=== PATIENT | male | born 1935 | race Caucasian/White ===

== ENCOUNTER 2019-08-30 21:21 | Inpatient (IN) | payer MEDICARE, BC ==
[~2019-08-30] VITALS: Ht 172.7 cm; Wt 75.3 kg
--- NOTE | 2019-08-30 21:10 | NUR ---
PT ARRIVED VIA AMBULANCE. O2 ON 2L VIA NC. PT DENIES NEEDS AT THIS TIME. CL IN REACH. A/O X3. CONFUSED WITH SITUATION AT TIMES. RESP EVEN AND UNLABORED. WILL CONTINUE TO MONITOR.
[2019-08-30 21:30] VITALS: BP 102/61
[2019-08-30] MEDS ORDERED: LINZESS290 MCG PO (21:35)
[2019-08-30] MEDS ORDERED: BAYER CHEWABLE81 MG PO (21:36)
[2019-08-30] MEDS ORDERED: COREG 3.1253.125 MG PO (21:36)
[2019-08-30] MEDS ORDERED: PROTONIX40 MG PO (21:36)
[2019-08-30] MEDS ORDERED: CRESTOR10 MG PO (21:37)
[2019-08-30] MEDS ORDERED: PROZAC20 MG PO (21:37)
[2019-08-30] MEDS ORDERED: COUMADIN5 MG PO (21:38)
[2019-08-30] MEDS ORDERED: COUMADIN2.5 MG PO (21:38)
[2019-08-30 22:16] VITALS: BP 102/61
[2019-08-31 04:51] LABS: BASOPHILS 0.3 % (0-2); EOSINOPHILS 1.3 % (0-7); HEMATOCRIT 26.5 % (42.0-54.0); IMMATURE GRANULOCYTES 0.5 % (0-5); MCH 27.9 pg (26.0-34.0); MCHC 30.2 g/dL (31.0-37.0); MCV 92.3 fL (80.0-100.0); MEAN PLATELET VOLUME 9.7 fL (7.4-10.4); MONOCYTES 8.2 % (2-11); NEUTROPHILS 70.7 % (40-80); PLATELET COUNT 385 10x3/uL (130-400); RBC 2.87 10x6/uL (4.20-6.10); RDW 16.2 % (11.5-14.5); WBC 6.3 10x3/uL (4.8-10.8)
[2019-08-31 04:58] LABS: ANION GAP 11.2 mmol/L (8-16); CALCIUM 8.7 mg/dL (8.5-10.1); CARBON DIOXIDE 27.3 mmol/L (21.0-32.0); CREATININE - SERUM 1.2 mg/dL (0.6-1.3); POTASSIUM - SERUM 4.5 mmol/L (3.5-5.1)
[2019-08-31 04:59] LABS: INR 2.45 (0.85-1.17); PROTIME 26.2 SECONDS (11.6-15.0)
[2019-08-31 08:00] VITALS: BP 119/58
[2019-08-31 09:06] VITALS: Ht 172.7 cm; Wt 75.3 kg
--- NOTE | 2019-08-31 19:15 | NUR ---
PT LYING IN BED WATCHING TV. CL IN REACH. DENIES NEEDS AT THIS TIME. BED IN LOW SIDE RAILS X3. CONFUSED WITH SITUATION. RESP EVEN AND UNLABORED. LUNGS DIMINISHED. O2 ON 2L VIA NC. BOWEL ACTIVE X4. WILL CONTINUE TO MONITOR.
[2019-08-31 19:49] VITALS: BP 124/94
--- NOTE | 2019-09-01 00:30 | NUR ---
I have reviewed this patient and I concur with the Shift Assessment completed by the Licensed Practical Nurse today this shift.
--- NOTE | 2019-09-01 05:33 | NUR ---
PT LYING IN BED WATCHING TV. CHANGED DUE TO INCONTINENCE OF URINE. WCTM
--- NOTE | 2019-09-01 07:27 | NUR ---
PT ASLEEP, AROUSES EASILY TO VOICE, NO NEEDS NOTED. FALL PRECAUTIONS IN PLACE, FLUIDS/CALL LIGHT WITHIN REACH
[2019-09-01 09:12] VITALS: BP 113/53
--- NOTE | 2019-09-01 19:30 | NUR ---
PT LYING IN BED WATCHING TV. CL IN REACH. DENIES NEEDS AT THIS TIME. BED IN LOW SIDE RAILS X2. BED ALARM ON. O2 ON 2L VIA NC. RESP EVEN AND UNLABORED. LUNGS DIMINISHED. BOWEL ACTIVE X4. WILL CONTINUE TO MONITOR.
--- NOTE | 2019-09-01 22:37 | NUR ---
I have reviewed this patient and I concur with the Shift Assessment completed by the Licensed Practical Nurse today this shift.
--- NOTE | 2019-09-02 03:34 | NUR ---
PT LYING IN BED ON LEFT SIDE EYES CLOSED RESTING. RR EVEN AND UNLABORED. CALL LIGHT WITHIN REACH. BED ALARM ON. CPOC
[2019-09-02 07:06] LABS: ANION GAP 8.7 mmol/L (8-16); CALCIUM 8.4 mg/dL (8.5-10.1); CARBON DIOXIDE 27.5 mmol/L (21.0-32.0); CREATININE - SERUM 1.2 mg/dL (0.6-1.3); POTASSIUM - SERUM 4.2 mmol/L (3.5-5.1)
[2019-09-02 07:12] LABS: BASOPHILS 0.2 % (0-2); EOSINOPHILS 1.5 % (0-7); HEMATOCRIT 26.1 % (42.0-54.0); IMMATURE GRANULOCYTES 0.4 % (0-5); LYMPHOCYTES 16.4 % (15-50); MCH 28.1 pg (26.0-34.0); MCHC 30.7 g/dL (31.0-37.0); MCV 91.6 fL (80.0-100.0); MEAN PLATELET VOLUME 9.6 fL (7.4-10.4); MONOCYTES 6.7 % (2-11); NEUTROPHILS 74.8 % (40-80); PLATELET COUNT 332 10x3/uL (130-400); RBC 2.85 10x6/uL (4.20-6.10); RDW 16.4 % (11.5-14.5); WBC 5.4 10x3/uL (4.8-10.8)
--- NOTE | 2019-09-02 07:25 | NUR ---
RESTING WO DISTRESS. BED ALARM ON. CL IN REACH.
[2019-09-02 08:00] VITALS: BP 94/48
--- NOTE | 2019-09-02 10:13 | NUR ---
PARTICIPATING IN THERAPY AT THIS TIME. NO DISTRESS NOTED.
--- NOTE | 2019-09-02 11:36 | NUR ---
SHOWER PER OT.
[2019-09-02 14:22] LABS: INR 3.1 (0.85-1.17); PROTIME 31.4 SECONDS (11.6-15.0)
--- NOTE | 2019-09-02 14:57 | NUR ---
PT HAS BRUISING ON BILATERAL UPPER AND LOWER EXTREMITIES. SACRUM HAS DISCOLORATION DUE TO SCARRING FROM PREVIOUS PRESSURE INJURIES. LEFT #1, 3 AND 4 TOES ARE BLACK, HEEL IS COVERED IN BLACK ESCHAR. RIGHT #1 AND 5 TOES ARE BLACK ON TIPS. CURRENT TREATMENT FOR TOES AND HEELS IS PAINTING WITH BETADINE AND COVERING WITH KERLIX. RECOMMEND MEPILEX SACRAL DRESSING FOR PROTECTION D/T HISTORY OF PRESSURE INJURIES. ALSO TURN/REPOSITION Q 2 HOURS WHILE IN BED. WOUND CARE WILL CONTINUE MONITORING.
--- NOTE | 2019-09-02 16:27 | NUR ---
NO CHANGE IN ASSESSMENT. RESTING WO C/O PAIN. CL IN REACH.
--- NOTE | 2019-09-02 20:00 | NUR ---
RESIDENT IS RESTING IN BED WITH EYE EYES OPEN. ALERT TO SELF. CONFUSED TO TIME, PLACE AND SITUATION. UNABLE TO REORIENT AT THIS TIME. O2 IS ON @ 2LPM PER NC. NO SOB NOTED. SR'S ARE UP X 2 IN BED. CALL LIGHT AND BEDSIDE TABLE ARE WITHIN EASY REACH.
[2019-09-02 21:26] VITALS: BP 97/41
--- NOTE | 2019-09-02 22:58 | NUR ---
PT IS RESTING QUIETLY IN BED WITH EYES CLOSED. RESPS ARE EVEN AND UNLABORED. NO ACUTE DISTRESS NOTED.
--- NOTE | 2019-09-03 01:47 | NUR ---
I have reviewed this patient and I concur with the Shift Assessment completed by the Licensed Practical Nurse today this shift.
--- NOTE | 2019-09-03 04:37 | NUR ---
RESTING IN BED WITH EYES CLOSED.
[2019-09-03 07:13] LABS: INR 2.63 (0.85-1.17); PROTIME 27.6 SECONDS (11.6-15.0)
--- NOTE | 2019-09-03 07:22 | NUR ---
RESTING. RESP EVEN AND UNLABORED. BED ALARM ON. CL IN REACH.
[2019-09-03 08:00] VITALS: BP 100/52
--- NOTE | 2019-09-03 09:16 | RHP ---
PATIENT: GREGORIO PEÑA MEDICAL RECORD: [id number] ACCOUNT: [id number] LOCATION:[facility]1110 : 36 ADMISSION DATE: 08/30/19 REHABILITATION HISTORY AND PHYSICAL EXAMINATION POST ADMISSION PHYSICIAN EXAMINATION ADMITTING DIAGNOSIS: Critical illness myopathy. 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 He has been on combination of anticoagulation and antiplatelet therapies including aspirin, clopidogrel, Lovenox and warfarin. He was started back on his Plavix and warfarin, was stopped again on 08/22/2019 due to a drop in his hemoglobin. He was transfused on 08/22/2019. Repeat CTA of his abdomen did not show any evidence of an active bleed. He is now back on warfarin. He has had a totally occluded right common iliac artery. He has been seen by vascular surgery in the past. It was noted that he may need amputation. The patient did not want to opt for this at this time. Lower extremity Doppler showed a DVT in the right lower extremity. He has had a stable eschar in the right heel and tops of his toes. The patient has had wound care. We will continue on Betadine to the right heel and wrapped with Kerlix. His INR is being followed closely, he is incontinent, which makes this a little bit rougher. He does remain on a skin guard, on a low air mattress this time. He is tolerating a diabetic diet with Ensure. He remains on 4 liters of O2 per nasal cannula, been participating in therapy. He requires min assist with his transfers and ambulated 10 feet with min assist. Prior to this hospitalization, he was living at home alone, he was independent with ADLs and used a walker for ambulation. His daughter does live next door. She checks on him frequently. He is motivated to return home. COMORBIDITIES: Include diabetes, prostate cancer, COPD, history of coronary artery disease and coronary artery bypass grafting. He has got a history of hyperlipidemia, prostate cancer and diabetes. PAST MEDICAL HISTORY: Significant for diabetes, prostate cancer, peripheral vascular disease, TIA in the past, hypertension and hyperlipidemia. PAST SURGICAL HISTORY: Includes coronary artery disease and coronary artery bypass grafting. ALLERGIES: ATORVASTATIN, METOPROLOL, TETANUS, AND DIPHTHERIA. IT ALSO LISTS METOPROLOL ON HIS LIST. CURRENT MEDICATIONS: He is on warfarin 2.5 mg Monday, Monday and Monday, 5 mg Monday, Monday, , and Monday; he on atorvastatin 10 mg daily; Prozac 20 mg daily; aspirin chewable 81 mg daily; carvedilol 3.125 mg b.i.d. with meals; Protonix 40 mg daily; Linzess 290 mcg daily. HABITS: No current alcohol or tobacco use. FAMILY HISTORY: Noncontributory. SOCIAL HISTORY: The patient hopes to return back home and get back to his prior level of functioning. HISTORY AND PHYSICAL [id number] GREGORIO PEÑA REVIEW OF SYSTEMS: GENERAL: Does complain of weakness and fatigue. HEENT: Denies cold, cough, or congestion. CARDIOVASCULAR: Denies any chest pain. PHYSICAL EXAMINATION: VITAL SIGNS: Stable, afebrile. GENERAL: Elderly gentleman in no acute distress upon exam. HEENT: Normocephalic and atraumatic. Mucosa moist. NECK: Supple. No lymphadenopathy. LUNGS: Clear in upper garn[place] with decreased breath sounds in the bases. CARDIOVASCULAR: Regular rate and rhythm. He does have a holosystolic murmur. ABDOMEN: Soft, benign, and nondistended. Positive bowel sounds times 4. EXTREMITIES: No clubbing, cyanosis or edema. Does have noted vascular changes or skin changes consistent with peripheral arterial disease and a black eschar noted, but no signs of infection at this time or malodorous drainage. NEUROLOGIC: He does have proximal muscle weakness. LABORATORY DATA: His white count is 6.3, H&H 8 and 26 and platelet count is noted to be 385. His INR is 2.45. His sodium is 141, potassium 4.5, BUN and creatinine of 31 and 1.2, and blood sugar is noted to be 160. ASSESSMENT: This is an 84-year-old gentleman admitted to the rehab with a working diagnosis of critical illness myopathy. The patient has potential to make improvement. We instituted the following multidisciplinary therapies including, but not limited to physical, occupational, respiratory, speech, nutritional services, prosthetics and orthotics. Given his complex medical condition and risks for more complications, rehabilitation services cannot be provided at a low level of care such as skilled nurse facility. PLAN: 1. Admit to [facility] for intensive inpatient therapy to include the following disciplines; A. Physical therapy to improve gait, all transfer skills and bed mobility to a modified independent level. B. Occupational therapy to improve activities of living. C. Case management to assist with discharge planning and placement options. D. Nutrition to assist with nutritional needs. E. Rehabilitation nursing to assist in monitoring the patient's underlying medical conditions and to assist with any type of bowel or bladder management. 2. The patient's current medication and medical care will be continued. 3. The patient will be placed on standard fall precautions. 4. The patient's estimated length of stay is approximately 7-10 days. 5. We will discuss this patient during care team staff meeting this week. TRANSINT:[id number] Voice Confirmation ID: [id number] DOCUMENT ID: [id number] GRECIA notes whether there has been none or any medical/functional change since admission: - No change since preadmission screen. GRECIA attests patient continues to be appropriate for IRF: - Continues to be appropriate. HISTORY AND PHYSICAL [id number] GREGORIO PEÑA,MIMI SIDDIQUI MD at 0916 CC: [id number] DICTATION DATE: 08/31/19 0857 FEED HOUSE SUPERVISOR: 08/31/[address] [facility] [address] [id number]
--- NOTE | 2019-09-03 13:11 | NUR ---
Nutrition Follow-up: Diet: Diabetic Soft PO intake: ~90% average x last 6 meals; patient was asleep at time of RD visit. Last BM: 09/02/19. WT: 166# (08/31/19) Meds noted: coumadin, linzess. Labs noted: Glu 170(H). Wound care following for h/o PU and black toes. Recommend continue current diet. Encourage PO intake. RD following.
--- NOTE | 2019-09-03 13:49 | NUR ---
NO CHANGE IN ASSESSMENT. PARTICIPATING IN THERAPY.
--- NOTE | 2019-09-03 16:29 | NUR ---
RESTING WITH EYES CLOSED. RESP EVEN AND UNLABORED. CL IN REACH.
--- NOTE | 2019-09-03 19:30 | NUR ---
PT SITTING UP IN BED WATCHING TV. HE IS ORIENTED TO PERSON. REIORIENTED TO TIME, PLACE AND SITUATION. HE IS VERY HARD OF HEARING. HE IS ON 2L NC. VSS. BED IS LOW AND CALL LIGHT WITHIN REACH.
[2019-09-03 21:18] VITALS: BP 94/38
--- NOTE | 2019-09-04 05:47 | NUR ---
PT INCONTINENT, DIAPER AND PADS ON BED CHANGED. ELROY AREA CLEANED.
[2019-09-04 06:49] LABS: BASOPHILS 0.2 % (0-2); EOSINOPHILS 0.8 % (0-7); HEMATOCRIT 27.8 % (42.0-54.0); HEMOGLOBIN 8.2 g/dL (13.5-17.5); IMMATURE GRANULOCYTES 0.3 % (0-5); LYMPHOCYTES 12.8 % (15-50); MCH 27.7 pg (26.0-34.0); MCHC 29.5 g/dL (31.0-37.0); MEAN PLATELET VOLUME 9.8 fL (7.4-10.4); MONOCYTES 5.9 % (2-11); PLATELET COUNT 318 10x3/uL (130-400); RBC 2.96 10x6/uL (4.20-6.10); RDW 16.6 % (11.5-14.5); WBC 6.1 10x3/uL (4.8-10.8)
[2019-09-04 06:59] LABS: CARBON DIOXIDE 27.5 mmol/L (21.0-32.0); CREATININE - SERUM 1.2 mg/dL (0.6-1.3); POTASSIUM - SERUM 4.5 mmol/L (3.5-5.1)
[2019-09-04 07:10] LABS: INR 2.51 (0.85-1.17); PROTIME 26.7 SECONDS (11.6-15.0)
[2019-09-04 07:18] LABS: MCV 93.9 fL (80.0-100.0)
[2019-09-04 08:00] VITALS: BP 114/55
--- NOTE | 2019-09-04 08:00 | NUR ---
SHIFT ASSMT COMPLETED.
--- NOTE | 2019-09-04 19:18 | NUR ---
PT LYING IN BED WATCHING TV. CL IN REACH. DENIES NEEDS AT THIS TIME. BED IN LOW SIDE RAILS X2. BED ALARM ON. RESP EVEN AND UNLABORED. O2 ON 2L VIA NC. LUNGS DIMINISHED. BOWEL ACTIVE X4. CONFUSED AT TIMES. WILL CONTINUE TO MONITOR.
[2019-09-04 21:10] VITALS: BP 102/46
--- NOTE | 2019-09-05 00:15 | NUR ---
I have reviewed this patient and I concur with the Shift Assessment completed by the Licensed Practical Nurse today this shift.
[2019-09-05 07:09] LABS: INR 2.6 (0.85-1.17); PROTIME 27.4 SECONDS (11.6-15.0)
[2019-09-05 08:00] VITALS: BP 120/61
--- NOTE | 2019-09-05 14:49 | NUR ---
0700 BEDSIDE REPORT RECEIVED FROM PHYSICAL MEDICINE SPECIALIST NURSE ASSESSMENT COMPLETE NO C/O PAIN
--- NOTE | 2019-09-05 14:51 | NUR ---
0900 IN WHEELCHAIR WANTING TO GET BACK TO BED. INSTRUCTED THAT HE CANNOT GET IN BED AT PRESENT AND RETLURNED HIM TO GYM
--- NOTE | 2019-09-05 17:40 | NUR ---
1200 LUNCH SERVED APPETITE POOR
--- NOTE | 2019-09-05 17:42 | NUR ---
1400 FAMILY MEMBER AT BEDSIDE VISITING
--- NOTE | 2019-09-05 17:45 | NUR ---
1542 RESTING QUIETLY WITH EYES CLOSED
--- NOTE | 2019-09-05 19:16 | NUR ---
PT LYING IN BED. CL IN REACH. NO DISTRESS NOTED. EYES CLOSED. BED IN LOW SIDE RAILS X2. BED ALARM ON. 2L OF O2 ON VIA NC. RESP EVEN AND UNLABORED. LUNGS DIMINISHED. BOWEL ACTIVE X4. CONFUSED AT TIMES. WILL CONTINUE TO MONITOR.
[2019-09-05 20:01] VITALS: BP 118/58
--- NOTE | 2019-09-06 00:11 | NUR ---
I have reviewed this patient and I concur with the Shift Assessment completed by the Licensed Practical Nurse today this shift.
--- NOTE | 2019-09-06 02:00 | NUR ---
CHECKED PT, BRIEF WAS DRY. CL IN REACH. WCTM
[2019-09-06 05:24] LABS: BASOPHILS 0.3 % (0-2); EOSINOPHILS 1.2 % (0-7); HEMATOCRIT 29.5 % (42.0-54.0); HEMOGLOBIN 8.5 g/dL (13.5-17.5); IMMATURE GRANULOCYTES 0.3 % (0-5); LYMPHOCYTES 11.4 % (15-50); MCH 27.2 pg (26.0-34.0); MCHC 28.8 g/dL (31.0-37.0); MCV 94.2 fL (80.0-100.0); MEAN PLATELET VOLUME 9.7 fL (7.4-10.4); NEUTROPHILS 81.8 % (40-80); PLATELET COUNT 323 10x3/uL (130-400); RBC 3.13 10x6/uL (4.20-6.10); RDW 16.7 % (11.5-14.5); WBC 6.8 10x3/uL (4.8-10.8)
[2019-09-06 05:43] LABS: INR 2.82 (0.85-1.17); PROTIME 29.2 SECONDS (11.6-15.0)
[2019-09-06 05:52] LABS: ANION GAP 6.7 mmol/L (8-16); CALCIUM 8.2 mg/dL (8.5-10.1); CARBON DIOXIDE 30.5 mmol/L (21.0-32.0); CREATININE - SERUM 1.3 mg/dL (0.6-1.3); POTASSIUM - SERUM 4.2 mmol/L (3.5-5.1)
--- NOTE | 2019-09-06 05:59 | NUR ---
CHANGED PT DUE TO INCONTINENCE OF URINE. DRESSING CHANGE TO RIGHT FOOT COMPLETED. WCTM
--- NOTE | 2019-09-06 07:27 | NUR ---
PT LAYING SUPINE. RR EVEN AND UNLABORED ON 2L NC. EYES CLOSED. BED IN LOWEST POSITION. NO DISTRESS NOTED. CALL LIGHT WITHIN REACH. WILL CONTINUE TO MONITOR.
[2019-09-06 07:49] VITALS: BP 100/43
--- NOTE | 2019-09-06 10:21 | NUR ---
CARD LACER STATES PT REFUSED SHOWER TODAY
--- NOTE | 2019-09-06 15:20 | NUR ---
PATIENT WAS ADMITTED TO REHAB FROM AN OUTSIDE FACILITY. DISCHARGE PLANS ARE UNCERTAIN AT THIS TIME. WILL CONTINUE TO FOLLOW WITH PATIENT . PATIENT WILL BE RA AT NEXT MEETING.
--- NOTE | 2019-09-06 19:25 | NUR ---
PATIENT RECEIVED LAYING IN BED. 02@2LNC CONTINUES. ASSESSMENT & VITAL SIGNS DONE. NO C/O PAIN OR DISTRESS. ALARM ON. CALL LIGHT WITHIN REACH. WILL CONTINUE TO MONITOR.
[2019-09-06 20:00] VITALS: BP 107/57
--- NOTE | 2019-09-07 01:40 | NUR ---
I have reviewed this patient and I concur with the Shift Assessment completed by the Licensed Practical Nurse today this shift.
--- NOTE | 2019-09-07 03:36 | NUR ---
PATIENT EYES CLOSED. RESPIRATIONS 18 & EVEN. BED LOW. ALARM ON. CALL LIGHT WITHIN REACH. WILL CONTINUE TO MONITOR.
[2019-09-07 06:52] LABS: INR 3.07 (0.85-1.17); PROTIME 31.2 SECONDS (11.6-15.0)
[2019-09-07 08:00] VITALS: BP 115/60
--- NOTE | 2019-09-07 08:00 | NUR ---
SHIFT ASSMT COMPLETED
--- NOTE | 2019-09-07 19:46 | NUR ---
PATIENT RECEIVED SITTING UP IN BED. ASSESSMENT & VITAL SIGNS DONE. FEET ON PILLOW. BED LOW. ALARM ON. CALL LIGHT WITHIN REACH. WILL CONTINUE TO MONITOR.
[2019-09-07 20:00] VITALS: BP 113/50
--- NOTE | 2019-09-07 23:49 | NUR ---
I have reviewed this patient and I concur with the Shift Assessment completed by the Licensed Practical Nurse today this shift.
--- NOTE | 2019-09-08 00:54 | NUR ---
PATIENT AWAKE WATCHING TV. NO C/O PAIN OR DISTRESS. BED LOW. ALARM ON. CALL LIGHT WITHIN REACH. WILL CONTINUE TO MONITOR.
--- NOTE | 2019-09-08 04:15 | NUR ---
PATIENT HAS INCONTINENCE OF URINE. PATIENT PERIAREA CLEANED. CALMOSEPTINE APPLIED TO COCCYX & BUTTOCKS. PATIENT DRESSING TO RIGHT FOOT LOOSE. OLD DRESSING OFF. PATIENT TOES & HEEL ESCAR PAINTED WITH BETADINE. NEW GAUZE APPLIED TO AREAS. ROLL GAUZE WRAPPED AROUND BOTTOM OF FOOT. PATIENT TOLERATED IT WELL. FEET ON PILLOW. BED LOW. ALARM ON. CALL LIGHT WITHIN REACH. WILL CONTINUE TO MONITOR.
[2019-09-08 07:19] LABS: INR 2.8 (0.85-1.17); PROTIME 29.1 SECONDS (11.6-15.0)
--- NOTE | 2019-09-08 08:00 | NUR ---
SHIFT ASSMT COMPLETED.CL IN REACH.BREAKFAST GIVEN.
[2019-09-08 08:15] VITALS: BP 110/50
--- NOTE | 2019-09-08 12:00 | NUR ---
AWAKE FOR LUNCH.TRAY GIVEN WITH MEAL SET-UP PROVIDED.
--- NOTE | 2019-09-08 19:31 | NUR ---
PATIENT RECEIVED SITTING UP IN BED. ASSESMENT & VITAL SIGNS DONE. BED LOW. ALARM ON. CALL LIGHT WITHIN REACH. WILL CONTINUE TO MONITOR.
[2019-09-08 20:29] VITALS: BP 118/60
--- NOTE | 2019-09-09 00:17 | NUR ---
I have reviewed this patient and I concur with the Shift Assessment completed by the Licensed Practical Nurse today this shift.
--- NOTE | 2019-09-09 02:35 | NUR ---
PATIENT DRESSING TAKEN OFF. ESCAR ON TOP OF TOES & BOTTOM OF HEEL PAINTED WITH BETADINE. COVERED WITH GAUZE & ROLLED GAUZE. BRIEF CHANGED. BUTTOCKS CLEANED & CALMOSEPTINE APPLIED TO BUTTOCKS & COCCYX. NO ADVERSE REACTION TO ANTIBIOTIC A TTHIS TIME. BED LOW. ALARM ON. CALL LIGHT WITHIN REACH. WILL CONTINUE TO MONITOR.
--- NOTE | 2019-09-09 07:12 | NUR ---
ALERT AND ORIENTED. NO C/O PAIN. RESP EVEN AND UNLAOBED. CL IN REACH.
[2019-09-09 07:23] LABS: BASOPHILS 0.2 % (0-2); EOSINOPHILS 1.5 % (0-7); HEMATOCRIT 28.5 % (42.0-54.0); HEMOGLOBIN 8.6 g/dL (13.5-17.5); IMMATURE GRANULOCYTES 0.2 % (0-5); MCH 28.6 pg (26.0-34.0); MCHC 30.2 g/dL (31.0-37.0); MCV 94.7 fL (80.0-100.0); MEAN PLATELET VOLUME 9.6 fL (7.4-10.4); MONOCYTES 7.2 % (2-11); NEUTROPHILS 78.9 % (40-80); RBC 3.01 10x6/uL (4.20-6.10); RDW 16.4 % (11.5-14.5); WBC 5.3 10x3/uL (4.8-10.8)
[2019-09-09 07:25] LABS: PLATELET COUNT 247 10x3/uL (130-400)
[2019-09-09 07:41] LABS: INR 2.48 (0.85-1.17); PROTIME 26.5 SECONDS (11.6-15.0)
[2019-09-09 07:45] LABS: ANION GAP 5.6 mmol/L (8-16); CALCIUM 8.4 mg/dL (8.5-10.1); CARBON DIOXIDE 32.7 mmol/L (21.0-32.0); CREATININE - SERUM 1.1 mg/dL (0.6-1.3); POTASSIUM - SERUM 4.3 mmol/L (3.5-5.1)
[2019-09-09 07:52] VITALS: BP 117/63
--- NOTE | 2019-09-09 11:02 | NUR ---
PARTICIPATED IN THERAPY THIS AM. ASSISTED BACK TO BED AT THIS TIME. CL IN REACH.
--- NOTE | 2019-09-09 14:58 | NUR ---
Nutrition Follow-up: Diet: Diabetic Soft PO intake: ~53% average x last 9 meals; patient asleep at time of RD visit Last BM: 09/09/19. WT: 166# (08/31/19), no new WT Meds noted: coumadin, linzess. Labs noted: Glu 167(H) Will add Glucerna with meals. Continue current diet. RD following.
--- NOTE | 2019-09-09 17:03 | NUR ---
NO CHANGE IN ASSESSMENT. RESTING WO DISTRESS. CL IN REACH.
--- NOTE | 2019-09-09 19:49 | NUR ---
PT IN BED, AAO X 2, RESP EVEN AND UNLABORED. NO DISTRESS NOTED, CL IN REACH, SR UP X 2. PT C/O LEFT HEEL PAIN, PT DRSG CHANGED AT THIS TIME, LEFT HEEL AND AND TOP OF TOES PAINTED WITH BETADINE AND WRAPPED WITH KERLIX. PT LEFT FOOT PLACED UP ON PILLOW. PT STATES FOOT FEELS MUCH BETTER AT THIS TIME.
[2019-09-09 21:45] VITALS: BP 115/72
--- NOTE | 2019-09-09 23:17 | NUR ---
I have reviewed this patient and I concur with the Shift Assessment completed by the Licensed Practical Nurse today this shift.
[2019-09-10 07:29] LABS: INR 2.28 (0.85-1.17); PROTIME 24.8 SECONDS (11.6-15.0)
--- NOTE | 2019-09-10 07:35 | NUR ---
ALERT AND ORIENTED. NO C/O PAIN. RESP EVEN AND UNLABORED. CL IN REACH.
[2019-09-10 09:37] VITALS: BP 126/65
--- NOTE | 2019-09-10 13:41 | NUR ---
NO CHANGE IN ASSESSMENT. PARTICIPATED IN THERAPY THIS AM. SITTING IN WC AT THIS TIME IN ROOM. CL IN REACH.
--- NOTE | 2019-09-10 16:50 | NUR ---
ASSISTED TO BR IN WC WITH MIN ASSIST. WIPED SELF. ASSISTED TO PULL PANTS UP/DOWN.
--- NOTE | 2019-09-10 19:12 | NUR ---
PT LYING IN BED WATCHING TV. CL IN REACH. BED ALARM ON. A/O X3. CONFUSED WITH TIME. BED IN LOW SIDE RAILS X2. O2 ON 2L LELE NC. DENIES NEEDS AT THIS TIME. RESP EVEN AND UNLABORED. LUNGS DIMINISHED. BOWEL ACTIVE X4. WILL CONTINUE TO MONITOR.
[2019-09-10 21:55] VITALS: BP 115/60
--- NOTE | 2019-09-10 23:26 | NUR ---
I have reviewed this patient and I concur with the Shift Assessment completed by the Licensed Practical Nurse today this shift.
[2019-09-11 07:08] LABS: BASOPHILS 0 % (0-2); EOSINOPHILS 1.6 % (0-7); HEMATOCRIT 29.4 % (42.0-54.0); HEMOGLOBIN 8.5 g/dL (13.5-17.5); IMMATURE GRANULOCYTES 0.4 % (0-5); LYMPHOCYTES 10.4 % (15-50); MCH 26.9 pg (26.0-34.0); MCHC 28.9 g/dL (31.0-37.0); MEAN PLATELET VOLUME 9.6 fL (7.4-10.4); MONOCYTES 6.2 % (2-11); NEUTROPHILS 81.4 % (40-80); PLATELET COUNT 236 10x3/uL (130-400); RBC 3.16 10x6/uL (4.20-6.10); RDW 16.2 % (11.5-14.5)
[2019-09-11 07:10] LABS: ANION GAP 6.8 mmol/L (8-16); CALCIUM 8.3 mg/dL (8.5-10.1); CARBON DIOXIDE 32.2 mmol/L (21.0-32.0); CREATININE - SERUM 1.2 mg/dL (0.6-1.3)
[2019-09-11 07:16] LABS: INR 2.12 (0.85-1.17); PROTIME 23.4 SECONDS (11.6-15.0)
--- NOTE | 2019-09-11 08:00 | NUR ---
SHIFT ASSMT COMPLETED.
[2019-09-11 08:42] VITALS: BP 123/66
--- NOTE | 2019-09-11 12:00 | NUR ---
EATING LUNCH.CL IN REACH.
--- NOTE | 2019-09-11 12:57 | NUR ---
Nutrition Follow-up: Diet: Diabetic Soft + Glucerna with meals PO intake: ~74% average x last 9 meals; He reports a good appetite. He request that I remove Glucerna from coming on meal trays. States that he will order GLucerna from his menu if he feels that he needs it. Last BM: 09/10/19. WT: 166# (08/31/19) Meds noted: coumadin, linzess. Labs noted: Glu 196(H). Needs new weight. Will remove Glucerna oral nutrition supplement from standing order. Recommend continue current diet or per [employer] recommendations, diabetic diet is nutritionally appropriate. RD following.
--- NOTE | 2019-09-11 16:12 | NUR ---
CARE TEAM MEETING: PATIENT IS PROGRESSING SLOWLY AT THIS TIME. IT IS RECCOMNEDED THAT PATIENT DISCHARGE TO SNF, BUT PATIENT IS WANTING TO GO HOME. WILL CONTINUE TO FOLLOW WITH PATIENT. UNABLE TO REACH FAMILY AT THIS TIME.
--- NOTE | 2019-09-11 16:41 | NUR ---
Late entry note from 09/10/2019- notified of email through [facility] that there was a question concerning patient's progress with therapy. Attempted to contact son listed on facesheet and unable to get call to go through kept having busy signal and also attempted to call the patient's daughter listed on facesheet and reached a voicemail that was full and unable to leave message. Nancy Andres RN Clinical Liaison, [facility] Rehab
--- NOTE | 2019-09-11 19:00 | NUR ---
REPORT GIVEN BY ROBBIE NOLASCO
--- NOTE | 2019-09-11 21:00 | NUR ---
ASSESSMENT COMPLETE. PT HAS A DVT RIGHT LOWER EXTREMITY. HE HAS SOME SKIN BREAKDOWN TO HIS RIGHT TOES AND HEEL DUE TO THE DVT. HE IS VERY [place] AND IS ON COUMADIN. HE IS INCONTINENT AT TIMES. HIS BOTTOM IS RED AND CÉSAR IS USED. HE IS CONFUSED. HE HAS BEEN ASKING FOR BREAKFAST ALL NIGHT.
[2019-09-11 21:16] VITALS: BP 92/59
--- NOTE | 2019-09-12 | NUR ---
PT IS SITTING ON THE SIDE OF THE BED ASKING FOR A PEANUT BUTTER AND JELLY SANDWICH. I TOLD HIM WHAT TIME IT WAS AND OFFERED WHAT WE HAD FOR HIM TO EAT. HE SAID NO.
--- NOTE | 2019-09-12 04:40 | NUR ---
PT IS RESTING QUIETLY WITHOUT C/O
[2019-09-12 06:43] LABS: INR 2.95 (0.85-1.17); PROTIME 30.3 SECONDS (11.6-15.0)
[2019-09-12 08:00] VITALS: BP 124/64
--- NOTE | 2019-09-12 08:00 | NUR ---
SHIFT ASSMT COMPLETED.BREAKFAST GIVEN.
--- NOTE | 2019-09-12 08:01 | NUR ---
PT IS SITTING UP IN WC WITH NO C/O
--- NOTE | 2019-09-12 11:50 | NUR ---
SPOKE WITH PATIENT THIS AM AND HE WOULD LIKE A REFERRAL FAXED TO [facility]. REFERRAL HAS BEEN FAXED.
--- NOTE | 2019-09-12 12:25 | NUR ---
[facility] COLLECTED FOR COVID-19.PLAN TO DISCHARGE TOMORROW [facility] PENDING TESTING RESULT.
--- NOTE | 2019-09-12 13:53 | NUR ---
PATIENT HAS BEEN ACCEPTED TO [facility] PENDING COVID RESULT. WILL CONTINUE TO FOLLOW WITH PATIENT.
--- NOTE | 2019-09-12 19:20 | NUR ---
PT ALERT, CONFUSED AT TIMES, LUNGS CLEAR, WATCHING TV WITH NO C/O, VITALS STABLE
[2019-09-12 19:30] VITALS: BP 108/47
[2019-09-13 08:00] VITALS: BP 140/83
--- NOTE | 2019-09-13 12:31 | NUR ---
SITTING ON SIDE OF BED EATING LUNCH. DENIES NEEDS. CALL LIGHT IN REACH
--- NOTE | 2019-09-13 12:49 | NUR ---
PATIENT DISCHARGING TO [facility]IA [facility]ILITY [facility]. FAMILY HAS BEEN NOTIFIED. BONNIE SIGNED , IMM SERVED AND EXPLAINED, ONE GIVEN TO PATIENT AND ONE FILED IN CHART. NO COMPARE DATA REVIEWED PATIENT WANTED TO BE CLOSER TO HIS HOME. AN APPOINTMENT WITH DR. BENITO METZGER WILL BE MADE BY FACILITY WHEN DISCHARGED. DSICHARGE INSTRUCTIONS FAXED TO PCP, SNF AND REVIEWED WITH PATIENT PER PRIMARY NURSE.
--- NOTE | 2019-09-13 14:17 | NUR ---
DC TO [facility]. PAPER WORK SENT WITH CONTINUING EDUCATION SPECIALIST WHO CAME AND PICKED UP PT. PT LEFT IN WC.
== END 2019-09-13 14:18 | DRG 92 ==
LOC: D.REHAB 21:21
PROVIDERS: ADMIT Emergency Medicine; ATTEND Emergency Medicine
DX: G72.81 Critical illness myopathy (principal); I82.401 Acute embolism and thrombosis of unspecified deep veins of right lower extremity; E11.9 Type 2 diabetes mellitus without complications; J44.9 Chronic obstructive pulmonary disease, unspecified; I25.10 Atherosclerotic heart disease of native coronary artery without angina pectoris; Z95.1 Presence of aortocoronary bypass graft; E78.5 Hyperlipidemia, unspecified; C61 Malignant neoplasm of prostate; I10 Essential (primary) hypertension; R32 Unspecified urinary incontinence

== ENCOUNTER 2019-09-24 12:48 | Inpatient (IN) | payer MEDICARE, BC ==
[~2019-09-24] VITALS: Ht 172.7 cm; Wt 79.7 kg
--- NOTE | ~2019-09-24 | HEMODYNAMI ---
PATIENT:GREGORIO PEÑA MEDICAL RECORD: [id number] : 37 LOCATION:[facility] D.2116 ADMISSION DATE: 09/24/19 Generatedon:10/08/201916:38 Patient name: GREGORIO PEÑA Patient #: [id number] SSN: : 1935 Date of study: 10/08/2019 Page: Of Hemodynamic Procedure Report Patient Data Patient Demographics Procedure consent was obtained First Name: GREGORIO Gender: Male Last Name: MARIANA : 1935 [facility] Initial: J Age: 84 year(s) Patient #: [id number] Race: Unknown Additional ID: [id number] Contact details Address: [address] [place] [address] State: [place] City: [place] Zip code: [address] Past Medical History Allergies Allergen Reaction Date Comments Reported Other allergy 10/08/2019 tetanus toxoid, adsorbed, metroprolol, atorvistatin, lipitor Admission Admission Data Admission Date: 09/24/2019 Admission Time: 18:38 Room #: D.2117 Height (in.): 68 BSA: 1.94 (m2) Height (cm.): 172.72 BMI: 26.91 (kg/m2) Weight (lbs.): 177 Weight (kg.): 80.29 Procedure Procedure Types Cath Procedure Peripheral Cath Diagnostic Procedure Abd/Extremity Extremities Right Lower Ext Arterio Procedure Description Procedure Date Procedure Date: 10/08/2019 Procedure Start Time: 14:43 Procedure End Time: 16:37 Procedure Staff Name Function Edgar Jackson MD Performing Physician OCTAVIO BASHIR RT Monitor Verna Schaffer RN Nurse Aung RDZ RN Nurse Gregorio Li RT Scrub Get Escobar CRNA Additional personnel Procedure Data Cath Procedure Fluoroscopy Diagnostic fluoroscopy Total fluoroscopy Time: time: 14.5 min 14.5 min Diagnostic fluoroscopy Total fluoroscopy dose: 504 dose: 504 mGy mGy Contrast Material Contrast Material Type Amount (ml) Isovue 300 105 Entry Location Entry Primary Successful Side Size Upsize Upsize Entry Closure Succes sful Closure Location (Fr) 1 (Fr) 2 (Fr) Remarks Device Remarks Femoral Left 5 Fr Exoseal artery Popliteal Right 5 Fr Procedure Medications Medication Administration Route Dosage Lidocaine 1% added to field 20 Heparin Flush Bag added to field 2 bags (1000units/500ml NS) Heparin Bolus I.V. 5000 units Nitroglycerin IC/IA I.A. 300 mcg Heparin Bolus I.A. 2000 units Hemodynamics Rest BSA: 1.94 (m2) O2 Consumption: Estimated: 244.81 (ml/min) O2 Consumption indexed : Estimated:126.19 (ml/min/m) Heart Rate: 103 (bpm) Snapshots Pre Cath Intra NCS Post Cath Vital Signs Time Heart Resp SPO2 etCO2 NIBP Rhythm Pain Sedation Rate (ipm) (%) (mmHg) (mmHg) Status Level (bpm) 14:19:34 80 20 91 0 110/72(87) NSR 0 (11) 10(A) , No pain 14:24:21 92 23 4.4 114/73(98) NSR 0 (11) 10(A) , No pain 14:28:26 82 22 2.9 111/76(96) NSR 0 (11) 10(A) , No pain 14:32:28 89 23 1.4 102/65(87) NSR 0 (11) 10(A) , No pain 14:36:40 101 29 86 0 79/44(71) NSR 0 (11) 10(A) , No pain 14:40:37 69 20 86 0 88/63(72) NSR 0 (11) 10(A) , No pain 14:45:20 94 19 85 9.7 102/69(95) NSR 0 (11) 10(A) , No pain 14:49:22 97 19 85 1.4 80/60(67) NSR 0 (11) 10(A) , No pain 14:53:17 95 20 81 9.7 96/68(90) NSR 0 (11) 10(A) , No pain 14:57:21 104 17 85 17.9 97/64(82) NSR 0 (11) 10(A) , No pain 15:01:21 103 20 90 10.4 106/72(90) NSR 0 (11) 10(A) , No pain 15:05:27 100 36 92 14.2 98/63(85) NSR 0 (11) 10(A) , No pain 15:09:28 96 18 91 26.2 102/66(84) NSR 0 () 10(A) , No pain 15:13:34 97 17 93 0 97/64(93) NSR 0 () 10(A) , No pain 15:17:34 98 13 95 0 99/73(87) NSR 0 () 10(A) , No pain 15:21:33 95 15 96 0 104/70(87) NSR 0 () 10(A) , No pain 15:25:35 95 16 94 0 96/74(86) NSR 0 () 10(A) , No pain 15:29:39 103 16 95 0 98/63(74) NSR 0 () 10(A) , No pain 15:33:40 95 18 95 1.4 105/68(84) NSR 0 () 10(A) , No pain 15:37:46 77 12 94 0 91/55(79) NSR 0 () 10(A) , No pain 15:41:52 68 25 91 0 85/51(65) NSR 0 () 10(A) , No pain 15:46:35 64 26 91 1.4 102/69(86) NSR 0 () 10(A) , No pain 15:50:41 77 24 93 0.7 89/62(83) NSR 0 () 10(A) , No pain 15:54:40 59 18 91 0 90/67(84) NSR 0 () 10(A) , No pain 15:58:40 70 16 92 0 103/69(89) NSR 0 (11) 10(A) , No pain 16:02:45 59 31 94 0 94/60(75) NSR 0 (11) 10(A) , No pain 16:06:51 91 17 95 0 96/52(85) NSR 0 (11) 10(A) , No pain 16:10:57 89 39 94 0 95/54(70) NSR 0 () 10(A) , No pain 16:15:01 90 24 95 0 93/59(84) NSR 0 (11) 10(A) , No pain 16:19:03 91 29 94 0 94/65(84) NSR 0 (11) 10(A) , No pain 16:23:11 59 13 95 0 87/49(79) NSR 0 (11) 10(A) , No pain 16:27:10 71 16 95 0 99/64(93) NSR 0 (11) 10(A) , No pain 16:31:14 71 14 95 0.7 111/66(91) NSR 0 (11) 10(A) , No pain 16:35:14 0 No Cuff NSR 0 (11) 10(A) , No pain Medications Time Medication Route Dose Verified Delivered Reason Notes Effectiveness by by 14:19:18 Heparin Flush added 2 Edgar Hernández used for Bag to bags Renetta Jackson MD procedure (1000units/500ml field NS) 14:19:26 Lidocaine 1% added 20ml Edgar Hernández for local to vial Renetta Jackson MD anesthetic field 15:24:49 Heparin Bolus I.V. 5000 Edgar Horan for units KAJAL Jackson anticoagulation RN 15:27:52 Nitroglycerin I.A. 300 Edgar Hernández for IC/IA mcg Renetta Jackson MD vasodilation MD 15:28:22 Heparin Bolus I.A. 2000 Edgar Hernández for units Renetta Jackson MD anticoagulation MD Procedure Log Time Note 14:11:29 Use device set IR Diagnostic 14:11:30 ACIST Syringe (57523) opened to sterile field. 14:11:30 ACIST Hand Control (40057) opened to sterile field. 14:11:31 ACIST Manifold (31782) opened to sterile field. 14:11:31 Bag Decanter () opened to sterile field. 14:11:32 Patient Height : 68 inches 14:11:32 Patient Weight : 177 lbs 14:11:32 Sterile Angiographic Pack opened to sterile field. 14:11:33 Tegaderm 4 x 4 (1626W) opened to sterile field. 14:12:21 SHEATH 5FR Sylva (QRI639) opened to sterile field. 14:12:22 TUBING High Pressure Extension (IABP) opened to sterile field. 14:12:22 GLIDE WIRE ANGLE 260cm (JU9352) opened to sterile field. 14:12:23 JADE 260 wire (T37400) opened to sterile field. 14:12:23 DOC .035 wire (P78876) opened to sterile field. 14:12:31 Aung RDZ RN sent for patient. Start room use. 14:12:32 Time tracking: Regular hours (M-F 7:00 - 5:00) 14:12:37 Plan of Care:Hemodynamics will remain stable., Cardiac rhythm will remain stable., Comfort level will be maintained., Respiratory function will remain adequate., Patient/ family verbilizes understanding of procedure., Procedure tolerated without complication., Recovers from procedure without complications.. 14:13:10 Signed procedure consent form obtained from patient. 14:13:11 Warm blankets applied, and johnny hugger turned on for patient comfort. 14:13:13 Correct patient and procedure confirmed by team. 14:13:15 ECG and BP/O2 sat monitors applied to patient. 14:13:30 - 14:13:34 H&P Date Dictated: 10/08/2019 Within 30 days and on chart.. 14:13:37 Pre-procedure instructions explained to patient. 14:13:37 Pre-op teaching completed and patient verbalized understanding. 14:13:39 Family in patients room. 14:13:42 Patient NPO since Midnight. 14:14:45 Patient allergic to Other allergytetanus toxoid, adsorbed, metroprolol, atorvistatin, lipitor 14:14:48 Is the patient allergic to Iodine/contrast media? No. 14:15:18 - 14:15:19 ----see anesthisia note for Pre-sedation anethesia assessment.---- 14:15:56 Pre procedure: right dorsailis pedis pulse 0-Absent 14:15:58 Pre procedure: right posterior tibial pulse Doppler 14:16:00 Pre procedure: left dorsailis pedis pulse Doppler 14:16:03 Pre procedure: left posterior tibial pulse Doppler 14:17:46 Left groin area was prepped with chlora-prep and draped in sterile fashion 14:17:48 Alarms reviewed by RMargaret NMargaret 14:17:48 Sharps counted by scrub and verified by RMargaretNMargaret 14:17:50 - 14:18:34 Vital chart was started 14:18:39 Baseline sample Acquired. 14:18:42 Full Disclosure recording started 14:18:44 - 14:19:18 Heparin Flush Bag (1000units/500ml NS) 2 bags added to field was administered by Edgar Jackson MD; used for procedure; Verbal order read back and verified. 14:19:26 Lidocaine 1% 20ml vial added to field was administered by Edgar Jackson MD; for local anesthetic; Verbal order read back and verified. 14:21:32 Angiodynamics Omniflush 5Fr 65cm ([id number]) opened to sterile field. 14:22:50 GLIDE CATHETER 5FR ANGLED 100cm (CG508) opened to sterile field. 14:38:27 Physician arrived 14:38:28 --------ALL STOP TIME OUT------ 14:38:28 Final Timeout: patient, procedure, and site verified with staff and physician. All members of the team are in agreement. 14:38:30 Bilateral groins site verified by team. 14:38:34 Fire Safety Assessment: A--An alcohol-based skin anteseptic being used preoperatively., C--Open oxygen or nitrous oxide is being used. 14:38:40 2) 60-89 Mildly reduced kidney function, and other findings (as for stage 1) point to kidney disease. 14:39:24 Maximum allowable contrast dose (3.7 X eGFR X 0.75)170 ml. 14:40:35 Procedure started. 14:43:02 Local anesthetic to left femerol artery with Lidocaine 1% by Edgar Jackson MD.INITIAL ACCESS ONLY 14:43:04 Access obtained with 4Fr micropunture. 14:44:14 AMPLATZ Super Stiff 75cm wire ([id number]) opened to sterile field. 14:52:20 A 5 Fr sheath was inserted into the Left Femoral artery 14:55:42 AMPLATZ Super stiff 180cm wire ([id number]) opened to sterile field. 15:06:30 Right Pedal was prepped with chlora-prep and draped in sterile fashion. 15:07:09 A 5 Fr sheath was inserted into the Right Popliteal 15:07:37 SHEATH 5FR Slender (33-5295) opened to sterile field. 15:08:00 ROADRUNNER .035 260 glide wire (Y34727) opened to sterile field. 15:08:01 CXI Catheter 90cm (K92036) opened to sterile field. 15:13:56 CXI SUPPORT .035 135 CM STR catheter (A85463) opened to sterile field. 15:24:00 GUIDEWIRE V-18 CONTROL ([id number]) opened to sterile field. 15:24:01 SHEATH 6FR Slender (95-4791) opened to sterile field. 15:24:49 Heparin Bolus 5000 units I.V. was administered by Aung RDZ RN; fo r anticoagulation; Verbal order read back and verified. 15:25:01 INFLATOR BasixTOUCH (RG2701) opened to sterile field. 15:27:52 Nitroglycerin IC/IA 300 mcg I.A. was administered by Edgar Jackson MD; fo r vasodilation; Verbal order read back and verified. 15:28:22 Heparin Bolus 2000 units I.A. was administered by Edgar Jackson MD; for anticoagulation; Verbal order read back and verified. 15:29:55 Inflate balloon Inflation number: 1 A CHOCOLATE BALLOON 6 X 120 ([id number]) was prepped and advanced across the Undefined1, then inflated. 15:36:40 COPILOT Valve Control (3386785) opened to sterile field. 15:45:09 Inflate balloon Inflation number: 1 A CHOCOLATE BALLOON 4 X 120 ([id number]) was prepped and advanced across the Undefined2 , then inflated. 15:46:31 NITINOL .014 300cm wire (X387358) opened to sterile field. 15:58:48 Inflate balloon Inflation number: 2 A CHOCOLATE BALLOON 6 X 120 ([id number]) was prepped and advanced across the Undefined2 , then inflated. 16:13:14 EXOSEAL 5Fr (EX500) opened to sterile field. 16:13:26 Sheath removed intact; hemostasis achieved with Exoseal to the Left Femoral artery. 16:20:08 Procedure ended.(Physican Out) 16:20:11 Fluoroscopy time 14.50 minutes. 16:20:18 Fluoroscopy dose: 504 mGy 16:20:18 Flurop Dose total: 504 16:20:21 Contrast amount:Isovue 300 105ml. 16:20:23 Sharps counted by scrub and verified by R.N. 16:20:32 Post-op/insertion site Left Femoral artery dressed using a 4 x 4 and Tegaderm. 16:20:43 Post-op/insertion site Right Pedal dressed using a 4 x 4 and Tegaderm. 16:20:57 Procedure and supply charges have been captured, reviewed, submitted an d are correct. 16:37:39 Vital chart was stopped 16:37:46 Procedure ended. 16:37:46 Full Disclosure recording stopped Intervention Summary Intervention Notes Time ActionType Lesion and Equipment Used Action# Pressure Duratio n Attributes 15:29:55 Inflate Undefined1 CHOCOLATE BALLOON 6 1 0 00:00 balloon X 120 ([id number]) 15:45:09 Inflate Undefined2 CHOCOLATE BALLOON 4 1 0 00:00 balloon X 120 ([id number]) 15:58:48 Inflate Undefined2 CHOCOLATE BALLOON 6 2 0 00:00 balloon X 120 ([id number]) Device Usage Item Name Manufacture Quantity Catalog Number Hospital Part C urrent Minimal Lot# / Charge Number Stock Stock Serial# Code ACIST Syringe Acist Medical 1 00467 360943 906768 9 13492 20 (09273) Systems Inc ACIST Hand Control [employer]ist [employer] 1 47587 765371 228279 9 21485 5 (87606) Systems Inc ACIST Manifold [employer] 1 40752 256040 377541 9 89643 5 (69529) Systems Inc Bag Decanter (2001S) Microtek 1 2002S 682884 06764 9 58300 5 Medical Inc. Sterile Angiographic Cardinal 1 [id number] 806753 9 80007 5 [facility] Tegaderm 4 x 4 3M 1 1626W 536890 939560 9 80497 5 (1626W) SHEATH 5FR Sylva Terumo 1 MLS847 316520 300969 9 73037 5 (AFE820) TUBING High Pressure [facility] 1 [id number] 676790 826177 9 68462 5 Extension (IABP) GLIDE WIRE ANGLE Terumo 1 EP1368 027667 213605 9 65304 5 260cm (AG0770) JADE 260 wire [employer] 1 X70452 330478 66450 9 82831 5 (P63013) DOC .035 wire [employer] 1 I43966 169638 9 83936 5 (P20067) Angiodynamics Angiodynamics 1 99943343 378569 670392 9 55827 5 Omniflush 5Fr 65cm (12248063) GLIDE CATHETER 5FR Terumo 1 CG508 252674 22736 9 86511 4 ANGLED 100cm (CG508) AMPLATZ Super Stiff [place] 1 [id number] 491926 133755 9 95021 5 [id number] 75cm wire Scientific ([id number]) AMPLATZ Super stiff [place] 1 [id number] 189341 165318 9 01843 5 [id number] 180cm wire Scientific ([id number]) SHEATH 6FR Slender Terumo 2 [id number] 462814 227175 9 24250 5 (80-1060) ROADRUNNER .035 260 [employer] 1 W87672 348729 086676 9 42099 5 glide wire (M02992) CXI Catheter 90cm [facility] 1 L79571 740879 032798 9 90954 5 [id number] (Z98307) CXI SUPPORT .035 135 [facility] 1 D76545 332339 862577 9 51109 5 [id number] CM STR catheter (I79730) GUIDEWIRE V-18 [place] 1 030816 980261 9 03167 1 [id number] CONTROL ([id number]) Scientific INFLATOR [facility] 1 SU9611 905803 960446 9 14463 15 BasixCompak (VS2049) INFLATOR BasixTOLien Enforcement [facility] 1 EZ1188 904595 597645 9 06678 5 (CR6927) CHOCOLATE BALLOON 6 Medtronic 2 [id number] 225605 58375 9 62507 1 X 120 ([id number]) COPILOT Valve [employer] 1 9934965 365571 996414 9 11096 5 Control (1622422) Vascular CHOCOLATE BALLOON 4 Medtronic 1 [id number] 577923 9 76424 1 X 120 TW ([id number]) NITINOL .014 300cm [employer]tronic 1 O545909 414147 9 27585 5 wire (V741659) EXOSEAL 5Fr (EX500) Cardinal 1 EX500 635839 526313 9 20690 10 Health Signature Audit Childs Stage Time Signature Unsigned Intra-Procedure 10/08/2019 OCTAVIO BASHIR RT 4:38:03 PM (R) [facility] [address] [place] [address]
[~2019-09-24 12:48] MED LIST: ACIDOPHILUS-PE1 EACH PO; BAYER CHEWABLE81 MG PO; COREG 3.1253.125 MG PO; COUMADIN2.5 MG PO; COUMADIN5 MG PO; CRESTOR10 MG PO; FERROUS SULFAT325 MG PO; KEFLEX500 MG PO; LINZESS290 MCG PO; PROTONIX40 MG PO; PROZAC20 MG PO
--- NOTE | 2019-09-24 14:04 | NUR ---
LEFT LOWER LEG WRAPPED. RIGHT LOWER LEG WITH 4 TOES WITH NECROTIC AREAS NOTED.
[2019-09-24 14:13] LABS: BASOPHILS 0.2 % (0-2); EOSINOPHILS 1.8 % (0-7); HEMATOCRIT 25.2 % (42.0-54.0); IMMATURE GRANULOCYTES 0.2 % (0-5); LYMPHOCYTES 14.3 % (15-50); MCH 26.4 pg (26.0-34.0); MCHC 28.6 g/dL (31.0-37.0); MCV 92.3 fL (80.0-100.0); MEAN PLATELET VOLUME 9.4 fL (7.4-10.4); MONOCYTES 5.4 % (2-11); NEUTROPHILS 78.1 % (40-80); PLATELET COUNT 253 10x3/uL (130-400); RBC 2.73 10x6/uL (4.20-6.10); RDW 16.9 % (11.5-14.5); WBC 4.5 10x3/uL (4.8-10.8)
[2019-09-24 14:19] LABS: HEMOGLOBIN 7.2 g/dL (13.5-17.5)
[2019-09-24 14:23] LABS: ANION GAP 5.3 mmol/L (8-16); CALCIUM 8.2 mg/dL (8.5-10.1); CARBON DIOXIDE 33.2 mmol/L (21.0-32.0); CREATININE - SERUM 1.2 mg/dL (0.6-1.3); POTASSIUM - SERUM 4.5 mmol/L (3.5-5.1)
[2019-09-24 14:29] LABS: ALBUMIN 1.8 g/dL (3.4-5.0); BILIRUBIN - TOTAL 0.36 mg/dL (0.2-1.3)
--- NOTE | 2019-09-24 19:31 | NUR ---
REPORT CALLED TO ROBBIE FLEMING AT THIS TIME. ALL QUESTIONS ANSWERED.
--- NOTE | 2019-09-24 19:46 | NUR ---
FSBS 227.
[2019-09-24 19:54] LABS: APTT 43.7 SECONDS (22.8-39.4); INR 3.73 (0.85-1.17); PROTIME 36.2 SECONDS (11.6-15.0)
[2019-09-24 19:58] LABS: % SATURATION 53 % (15-55); IRON 96 ug/dl (35-150); TOTAL IRON BIND CAPACITY 178 ug/dl (260-445); UNSAT IRON BIND CAPACITY 82 ug/dl (150-375)
--- NOTE | 2019-09-24 20:20 | NUR ---
pt to floor via stretcher at this time.
--- NOTE | 2019-09-24 20:20 | NUR ---
ROCEPHIN INFUSION COMPLETE AT 185. 09/24/191855 ZITHROMAX INFUSION COMPLETE AT 1926. 09/24/191926
[2019-09-24] MEDS ORDERED: C-500500 M1 PO (21:52)
[2019-09-24] MEDS ORDERED: VIC-FORTE CAPSUL1 MG PO (21:57)
[2019-09-24 22:49] VITALS: BP 117/68; BMI 26.1
[2019-09-25] VITALS: BP 128/75
[2019-09-25 04:00] VITALS: BP 108/69
--- NOTE | 2019-09-25 04:35 | NUR ---
RESTING ON BED WITH NO NEEDS AT THIS TIME. CAME FROM [facility]. TWO UNITS OF PRBC THIS SHIFT. PER PROTOCOL. TELEMETRY IN PLACE 97 S.R. IV TO RIGHT FOREARM IV TO RIGHT UPPRARM WITH NS AT 60ML/HR. INCENTIVE SPIROMETER AT BEDSIDE BRUSING TO LEFT HIP AND ACROSS BUTT WOUNDS TO RIGHT FOOT AND TOES. ALARM IN PLACE AND ON
[2019-09-25 05:33] LABS: BASOPHILS 0.2 % (0-2); CALC OSMOLALITY 298 mosm/kg (275-300); CALCIUM 8.3 mg/dL (8.5-10.1); CARBON DIOXIDE 32.2 mmol/L (21.0-32.0); CHLORIDE - SERUM 108 mmol/L (98-107); CREATININE - SERUM 1.2 mg/dL (0.6-1.3); EOSINOPHILS 1.5 % (0-7); IMMATURE GRANULOCYTES 0.4 % (0-5); LYMPHOCYTES 16.7 % (15-50); MCH 27.1 pg (26.0-34.0); MCHC 30.1 g/dL (31.0-37.0); MEAN PLATELET VOLUME 9.8 fL (7.4-10.4); MONOCYTES 8.7 % (2-11); NEUTROPHILS 72.5 % (40-80); PLATELET COUNT 281 10x3/uL (130-400); POTASSIUM - SERUM 4.5 mmol/L (3.5-5.1); RDW 16.7 % (11.5-14.5); SODIUM 143 mmol/L (136-145); UREA NITROGEN 30 mg/dL (7-18); WBC 5.3 10x3/uL (4.8-10.8); eGFR NON AFRICAN AMERICAN 61 mL/min (90-120)
[2019-09-25 05:37] LABS: HEMATOCRIT 30.6 % (42.0-54.0); HEMOGLOBIN 9.2 g/dL (13.5-17.5); MCV 90.3 fL (80.0-100.0); RBC 3.39 10x6/uL (4.20-6.10)
[2019-09-25 05:40] LABS: % SATURATION 14 % (15-55); IRON 26 ug/dl (35-150); TOTAL IRON BIND CAPACITY 183 ug/dl (260-445); UNSAT IRON BIND CAPACITY 157 ug/dl (150-375)
[2019-09-25 05:46] LABS: GLUCOSE 239 mg/dL (74-106)
[2019-09-25 05:58] LABS: APTT 46.9 SECONDS (22.8-39.4); INR 3.24 (0.85-1.17); PROTIME 32.5 SECONDS (11.6-15.0)
[2019-09-25 06:07] LABS: ALBUMIN 1.8 g/dL (3.4-5.0); ALKALINE PHOSPHATASE 90 U/L (30-120); ALT (SGPT) 8 U/L (10-68); BILIRUBIN - TOTAL 0.46 mg/dL (0.2-1.3); CREATINE KINASE 22 UL (21-232); FERRITIN 127 ng/mL (3-244); MAGNESIUM - SERUM 1.7 mg/dL (1.8-2.4)
[2019-09-25 08:36] VITALS: BP 119/68
--- NOTE | 2019-09-25 08:46 | NUR ---
HE IS SETTING UP ON THE SIDE OF THE BED TO EAT BREAKFAST. HIS FEET ARE SWOLLEN. HE HAS 2 WOUNDS ON THE RIGHT FOOT, GREAT TOE AND HEEL. THE BED ALARM IS ON AND THE CALL LIGHT IS WITHIN REACH.
[2019-09-25 12:22] VITALS: BP 120/65
[2019-09-25 13:35] VITALS: BMI 26.1
[2019-09-25 17:04] VITALS: BP 123/75
--- NOTE | 2019-09-25 18:40 | NUR ---
report called to licha on med 2.
[2019-09-25 19:14] VITALS: Ht 172.7 cm; Wt 79.7 kg
[2019-09-25 20:00] VITALS: BP 122/76
--- NOTE | 2019-09-25 20:00 | NUR ---
PT LYING IN BED AWAKE ALERT AND ORIENTED x3. PT IS NOT AWARE OF PLACE. PT COMPLAINED OF BEING COLD. AIR TURNED OFF AND WARM BLANKET PROVIDED. NO PTHER COMPLIANTS AT THIS TIME CALL LIGHT AND OTHER PERSONAL ITEMS WITH IN REACH. WILL CONTINUE TO MONITOR
[2019-09-26] VITALS: BP 127/75
--- NOTE | 2019-09-26 01:37 | NUR ---
PT LYING IN BED RESTING QUIETLY WITH EYES CLOSED. NO SIGNS OR SYMPTOMS OF DISTRSS NOTED. EASILY AWAKEN WITH NOISE STIMULATION. PT HAS NO COMPLAINTS AT THIS TIME. PT REPOSITIONED FOR COMFORT. ASSIST WITH BED CHANGE. PT IS INCONTINENT. CALL LIGHT AND OTHER PERSONAL ITEMS WITH IN REACH. BED ALARM ON AND ACTIVE. PT ENCOURAGED TO CALL FOR HELP WHEN GETTING IN AND OUT OF BED AND NEEDED. WILL CONTINUE TO MONITOR
--- NOTE | 2019-09-26 03:56 | NUR ---
I have reviewed this patient and I concur with the Shift Assessment completed by the Licensed Practical Nurse today this shift.
[2019-09-26 04:00] VITALS: BP 119/68
[2019-09-26 06:32] LABS: BASOPHILS 0.2 % (0-2); EOSINOPHILS 2.5 % (0-7); HEMATOCRIT 32.5 % (42.0-54.0); HEMOGLOBIN 9.7 g/dL (13.5-17.5); IMMATURE GRANULOCYTES 0.5 % (0-5); LYMPHOCYTES 17.7 % (15-50); MCH 27.6 pg (26.0-34.0); MCHC 29.8 g/dL (31.0-37.0); MEAN PLATELET VOLUME 9.9 fL (7.4-10.4); MONOCYTES 7.9 % (2-11); NEUTROPHILS 71.2 % (40-80); PLATELET COUNT 247 10x3/uL (130-400); RBC 3.51 10x6/uL (4.20-6.10); RDW 17.2 % (11.5-14.5); WBC 4.4 10x3/uL (4.8-10.8)
[2019-09-26 06:38] LABS: INR 4.24 (0.85-1.17); MCV 92.6 fL (80.0-100.0)
[2019-09-26 06:39] LABS: ALBUMIN 1.7 g/dL (3.4-5.0); ANION GAP 7.7 mmol/L (8-16); BILIRUBIN - TOTAL 0.36 mg/dL (0.2-1.3); CALCIUM 8.2 mg/dL (8.5-10.1); CARBON DIOXIDE 32.8 mmol/L (21.0-32.0); CREATININE - SERUM 1.4 mg/dL (0.6-1.3); MAGNESIUM - SERUM 1.7 mg/dL (1.8-2.4); PHOSPHOROUS 4.1 mg/dL (2.5-4.9); POTASSIUM - SERUM 4.5 mmol/L (3.5-5.1); PROTEIN - SERUM 5.8 g/dL (6.4-8.2)
[2019-09-26 09:00] VITALS: BP 114/48
--- NOTE | 2019-09-26 10:42 | NUR ---
I have reviewed this patient and I concur with the Shift Assessment completed by the Licensed Practical Nurse today this shift.
[2019-09-26 18:15] VITALS: BP 120/69
--- NOTE | 2019-09-26 19:50 | NUR ---
PT IS RESTING WITH EYES CLOSED. HE IS AROUSED WITH VERBAL STIMULI BUT HE IS CONFUSED. HEELS BRIDGED ON PILLOWS AND HE WAS ASSISTED TO HIS LEFT SIDE. HE DENIES PAIN OR NEEDS. HIS BED IS LOW, CALL LIGHT IS WITHIN REACH AND BED ALARM IS ON.
[2019-09-26 20:00] VITALS: BP 109/64
[2019-09-26 21:18] VITALS: BP 126/74
[2019-09-27] VITALS: BP 107/61
[2019-09-27 01:00] LABS: BILIRUBIN NEGATIVE (NEGATIVE); GLUCOSE NEGATIVE (NEGATIVE); KETONE NEGATIVE (NEGATIVE); NITRITE NEGATIVE (NEGATIVE); UROBILINOGEN NORMAL (NORMAL)
[2019-09-27 04:00] VITALS: BP 104/62
[2019-09-27 05:09] LABS: BASOPHILS 0 % (0-2); EOSINOPHILS 3.6 % (0-7); HEMATOCRIT 34.8 % (42.0-54.0); IMMATURE GRANULOCYTES 0.2 % (0-5); LYMPHOCYTES 18.5 % (15-50); MCH 26.9 pg (26.0-34.0); MCHC 28.7 g/dL (31.0-37.0); MCV 93.5 fL (80.0-100.0); MEAN PLATELET VOLUME 9.8 fL (7.4-10.4); MONOCYTES 7.3 % (2-11); NEUTROPHILS 70.4 % (40-80); PLATELET COUNT 271 10x3/uL (130-400); RBC 3.72 10x6/uL (4.20-6.10); WBC 4.2 10x3/uL (4.8-10.8)
[2019-09-27 05:20] LABS: INR 4.27 (0.85-1.17); PROTIME 40.2 SECONDS (11.6-15.0)
[2019-09-27 05:33] LABS: ALBUMIN 1.7 g/dL (3.4-5.0); ANION GAP 6.7 mmol/L (8-16); BILIRUBIN - TOTAL 0.35 mg/dL (0.2-1.3); CALCIUM 8.3 mg/dL (8.5-10.1); CARBON DIOXIDE 32.2 mmol/L (21.0-32.0); CREATININE - SERUM 1.4 mg/dL (0.6-1.3); MAGNESIUM - SERUM 1.6 mg/dL (1.8-2.4); PHOSPHOROUS 4.1 mg/dL (2.5-4.9); POTASSIUM - SERUM 3.9 mmol/L (3.5-5.1); PROTEIN - SERUM 5.9 g/dL (6.4-8.2)
--- NOTE | 2019-09-27 07:14 | NUR ---
PT RESTING COMFORTABLY, EYES CLOSED, BREATHS EVEN/REGULAR AND UNLABORED. NO SIGNS OR SYMTPOMS OF ACUTE DISTRESS NOTED AT THIS TIME. NO FAMILY AT BEDSIDE. CL IN REACH, SRX2.
[2019-09-27 09:26] VITALS: BP 106/71
--- NOTE | 2019-09-27 10:41 | NUR ---
ATTEMPTED TO MOVE PT ASASP BUT WAS UNABLE TO D/T ECHO GIRL IN ROOM DOING ECHO. WILL REATEMPT WHEN SHE IS DONE.
--- NOTE | 2019-09-27 13:33 | NUR ---
Nutrition Follow-up: Pt confused. Noted 25% of dinner eaten last night. Diet: Diabetic, Glucerna BID Wt: 177# (09/25); 171.9# (09/23) No BMs recorded Labs noted: Glu 108, Ca 8.3, Mg 1.6, Alb 1.7 Meds noted: Humalog, Protonix, Linzess, electrolyte protocol -Encourage PO intake and honor food preferences within diet restrictions. -Monitor wt; noted daily wts ordered. -RD following.
--- NOTE | 2019-09-27 16:23 | NUR ---
PT TRANSFERED TO 0.
--- NOTE | 2019-09-27 17:01 | NUR ---
FROM MED 2. ALERT, TALKING, ON 5 LITERS NC. THE CALL LIGHT IS WITHIN REACH.
[2019-09-27 20:00] VITALS: BP 115/55
--- NOTE | 2019-09-27 20:00 | NUR ---
PATIENT RESTING IN BED WITH EYES CLOSED. NO S/S OF ACUTE DISTRESS. NO C/O AT THIS TIME. PATIENT IS ON 5L NASAL CANNULA. PATIENT HAS TWO RIGHT UPPER ARM IV, ON IS SALINE LOC AND ONE IS NORMAL SALINE @ 10 ML/HR. BOTH IV ARE PATENT WITHOUT REDNESS, SWELLING, OR TENDERNESS. PATIENT HAS TELEMETRY: 84 SINUS WITH A BBB. PATIENT HAS NECROTIC SPOT ON HIS FIRST THREE TOES AND ON HIS HEEL. PATIENT IS INCONTINENT OF BOWEL AND BLADDER AT TIMES. PATIENT IS PARTIAL ASSIST. CALL LIGHT WITHIN REACH. WILL CONTINUE TO MONITOR.
[2019-09-28] VITALS: BP 118/59; BP 131/67
--- NOTE | 2019-09-28 02:22 | NUR ---
I have reviewed this patient and I concur with the Shift Assessment completed by the Licensed Practical Nurse today this shift.
[2019-09-28 04:00] VITALS: BP 121/64
[2019-09-28 06:24] LABS: BASOPHILS 0.2 % (0-2); EOSINOPHILS 3.4 % (0-7); HEMOGLOBIN 9.5 g/dL (13.5-17.5); IMMATURE GRANULOCYTES 0.2 % (0-5); LYMPHOCYTES 19.2 % (15-50); MCHC 28.8 g/dL (31.0-37.0); MCV 93.8 fL (80.0-100.0); MEAN PLATELET VOLUME 9.7 fL (7.4-10.4); MONOCYTES 7.4 % (2-11); NEUTROPHILS 69.6 % (40-80); PLATELET COUNT 244 10x3/uL (130-400); RBC 3.52 10x6/uL (4.20-6.10); RDW 17.2 % (11.5-14.5); WBC 4.1 10x3/uL (4.8-10.8)
[2019-09-28 06:49] LABS: ALBUMIN 1.8 g/dL (3.4-5.0); ANION GAP 6.4 mmol/L (8-16); BILIRUBIN - TOTAL 0.31 mg/dL (0.2-1.3); CALCIUM 8.3 mg/dL (8.5-10.1); CREATININE - SERUM 1.3 mg/dL (0.6-1.3); MAGNESIUM - SERUM 1.7 mg/dL (1.8-2.4); PHOSPHOROUS 4.2 mg/dL (2.5-4.9); POTASSIUM - SERUM 4.4 mmol/L (3.5-5.1); PROTEIN - SERUM 5.7 g/dL (6.4-8.2)
[2019-09-28 08:33] LABS: INR 4.63 (0.85-1.17); PROTIME 42.8 SECONDS (11.6-15.0)
--- NOTE | 2019-09-28 09:10 | NUR ---
SITTING ON SIDE OF BED, NO DISTRESS NOTED, GENERAL EDEMA NOTED, SL IN PLACE TO R ARM,
[2019-09-28 09:12] VITALS: BP 131/81
[2019-09-28 13:11] VITALS: BP 103/71
[2019-09-28 17:05] VITALS: BP 116/70
--- NOTE | 2019-09-28 17:38 | NUR ---
WOUNDS TO RIGHT TOES NUMBER 1,2,3,4,5 DARK WOUNDS PLC ENGINEER, HEEL ALSO BLACK AND PLC ENGINEER, FOOT PEELING, UNABLE TO PALPATE PULSE
--- NOTE | 2019-09-28 19:28 | NUR ---
PATIENT RESTING IN BED WITH NO S/S OF DISTRESS. BED IN LOWEST POSITION AND CALL LIGHT WITHIN REACH. WILL CONTINUE TO MONITOR.
[2019-09-28 20:15] VITALS: BP 94/59
--- NOTE | 2019-09-28 21:03 | NUR ---
ADMINISTERED MEDS PER ORDERS. PATIENT DENIES OTHER NEEDS AT THIS TIME. BED IN LOWEST POSITION, CALL LIGHT WITHIN REACH, AND BED ALARM ON. ENCOURAGED THE PATIENT TO CALL IF SHE HE HAS NEEDS. WILL CONTINUE TO MONITOR.
[2019-09-29 01:11] VITALS: BP 98/60
[2019-09-29 04:35] VITALS: BP 119/56
[2019-09-29 06:52] LABS: BASOPHILS 0 % (0-2); EOSINOPHILS 1.6 % (0-7); HEMATOCRIT 34.3 % (42.0-54.0); HEMOGLOBIN 9.8 g/dL (13.5-17.5); IMMATURE GRANULOCYTES 0.2 % (0-5); LYMPHOCYTES 16.8 % (15-50); MCHC 28.6 g/dL (31.0-37.0); MCV 94.5 fL (80.0-100.0); MONOCYTES 6.2 % (2-11); NEUTROPHILS 75.2 % (40-80); PLATELET COUNT 242 10x3/uL (130-400); RBC 3.63 10x6/uL (4.20-6.10); RDW 17.4 % (11.5-14.5)
[2019-09-29 06:57] LABS: PROTIME 34.9 SECONDS (11.6-15.0)
[2019-09-29 06:59] LABS: INR 3.56 (0.85-1.17)
[2019-09-29 07:07] LABS: ALBUMIN 1.8 g/dL (3.4-5.0); ANION GAP 7.8 mmol/L (8-16); BILIRUBIN - TOTAL 0.31 mg/dL (0.2-1.3); CALCIUM 8.4 mg/dL (8.5-10.1); CARBON DIOXIDE 29.7 mmol/L (21.0-32.0); CREATININE - SERUM 1.5 mg/dL (0.6-1.3); MAGNESIUM - SERUM 1.7 mg/dL (1.8-2.4); POTASSIUM - SERUM 4.5 mmol/L (3.5-5.1); PROTEIN - SERUM 5.6 g/dL (6.4-8.2)
[2019-09-29 07:58] VITALS: BP 104/57
--- NOTE | 2019-09-29 09:33 | NUR ---
I WOKE HIM UP TO EAT BREAKFAST, HE TOOK HIS MEDICATIONS WITHOUT ANY PROBLEMS. THE CALL LIGHT IS WITHIN REACH AND THE BED ALARM IS ON.
[2019-09-29 12:21] VITALS: BP 108/59
[2019-09-29 17:11] VITALS: BP 106/63
--- NOTE | 2019-09-29 19:25 | NUR ---
PATIENT RESTING IN BED WITH NO S/S OF DISTRESS AND DENIES NEEDS AT THIS TIME. BED IN LOWEST POSITION AND CALL LIGHT WITHIN REACH. ENCOURAGED THE PATIENT TO CALL IF HE HAS NEEDS. WILL CONTINUE TO MONITOR.
[2019-09-29 20:08] VITALS: BP 93/55
[2019-09-30 04:00] VITALS: BP 107/55
[2019-09-30 05:19] LABS: BASOPHILS 0 % (0-2); EOSINOPHILS 1.6 % (0-7); HEMOGLOBIN 9.5 g/dL (13.5-17.5); LYMPHOCYTES 16.4 % (15-50); MCH 27.3 pg (26.0-34.0); MCHC 28.8 g/dL (31.0-37.0); MCV 94.8 fL (80.0-100.0); MEAN PLATELET VOLUME 9.7 fL (7.4-10.4); MONOCYTES 7.6 % (2-11); NEUTROPHILS 74.4 % (40-80); PLATELET COUNT 199 10x3/uL (130-400); RBC 3.48 10x6/uL (4.20-6.10); RDW 17.5 % (11.5-14.5); WBC 4.9 10x3/uL (4.8-10.8)
[2019-09-30 05:34] LABS: INR 3.06 (0.85-1.17); PROTIME 31.1 SECONDS (11.6-15.0)
[2019-09-30 05:35] LABS: APTT 51.5 SECONDS (22.8-39.4)
[2019-09-30 05:53] LABS: ALBUMIN 1.7 g/dL (3.4-5.0); ANION GAP 5.2 mmol/L (8-16); BILIRUBIN - TOTAL 0.25 mg/dL (0.2-1.3); CALCIUM 8.3 mg/dL (8.5-10.1); CARBON DIOXIDE 33.2 mmol/L (21.0-32.0); CREATININE - SERUM 1.5 mg/dL (0.6-1.3); POTASSIUM - SERUM 4.4 mmol/L (3.5-5.1); PROTEIN - SERUM 5.4 g/dL (6.4-8.2)
--- NOTE | 2019-09-30 07:10 | NUR ---
PATIENT CONFUSED AT TIMES. BEDFAST. NO C/O PAIN. NO S/S OF ACUTE DISTRESS NOTED. ON TELEMETRY 78 SR WITH BBB. ON 5L O2, NC. BIPAP AT BEDSIDE. 2 PERIPHERAL IVS TO RIGHT UPPER ARM, NS INFUSING @ 75ML/HR THE OTHER SL. SITES PATENT WITHOUTREDNESS OR SWELLING. SCHEDULED FOR AN ARTERIOGRAM THIS AM, REFUSING TO SIGN CONSENTS. PATIENT STATED HE WANTS TO TALK TO THE PHYSICIAN FIRST BEFORE SIGNING ANYTHING. WILL NOTIFY INTERVENTIONAL RADIOLOGY THIS AM. DENIES ANY NEEDS AT THIS TIME. CALL LIGHT IN REACH. WILL CONTINUE TO MONITOR.
[2019-09-30 09:12] VITALS: BP 109/64
--- NOTE | 2019-09-30 11:21 | NUR ---
I have reviewed this patient and I concur with the Shift Assessment completed by the Licensed Practical Nurse today this shift.
--- NOTE | 2019-09-30 11:22 | EC ---
PATIENT:GREGORIO PEÑA DATE OF SERVICE: 09/24/19 SEX: M MEDICAL RECORD: [id number] DATE OF : 37 LOCATION:[facility] AGE OF PATIENT: 84 ADMISSION DATE: 09/24/19 REFERRING PHYSICIAN: INTERPRETING PHYSICIAN: MICHELE MAO MD ECHOCARDIOGRAM REPORT ECHO CHARGES 4 ECHO COMPLETE Date: 09/27/19 CLINICAL DIAGNOSIS: DYSPNEA, PLEURAL EFFUSION ECHOCARDIOGRAPHIC MEASUREMENTS (adult normal given) AC root (d.<3.7cm) 3.3 cm LV Septum d (<1.2 cm> 0.8 cm Valve Excursion 1.6 cm LV Septum (systole) 1.3 cm Left Atria (s.<4.0cm> 4.4 cm LVPW d(<1.2cm) 0.9 cm RV (d.<2.3cm) 5.3 cm LVPW (sytole) 1.2 cm LV diastole(<5.6CM) 7.3 cm MV E-F(>70mm/sec) cm LV systole 5.7 cm LVOT Diameter 1.7 cm MV exc.(>10mm) cm Est.ejection fraction (50-75%) % DOPPLER: LVIT cm/sec A 121 cm/sec E 99 cm/sec LA cm/sec RVSP 35.5 mmHg LVOT 111 cm/sec AOP1/2T m/s Asc. Ao 202 cm/sec RVOT 58 cm/sec RA cm/sec PA 62 cm/sec AV Gradient Peak 16.3 mmHg AV Mean 6.2 mmHg AV Area 1.2 cm MV Gradient Peak 11.5 mmHg MV Mean 5.0 mmHg MV Area cm COMMENTS: Power Sewing Machine Operator: George HERNDON Recruiting Specialist: 3 Dr. Larios TAPE# PACS Pericardial Effusion N DATE OF SERVICE: Adequate 2D, color flow imaging, spectral Doppler, and M-Mode No LVH. LV internal dimensions are normal. Wall motion is globally hypokinetic with reduced EF, estimated EF 20%. Aortic valve is sclerosed without evidence of stenosis by Doppler interrogation. Left atrium is mildly dilated at 4.4 cm. Mitral valve shows no prolapse. Evva-do-btatayrl MR. Right-sided chambers are grossly normal. Mild TR. ECHOCARDIOGRAM REPORT [id number] GREGORIO PEÑA TRANSINT:[id number] Voice Confirmation ID: [id number] DOCUMENT ID: [id number] MICHELE MAO MD at 1122 CC: [id number] DICTATION DATE: 09/28/19 1032 FIELD SUPPORT ENGINEER: 09/28/19 1620 ADM IN [facility] [address] [place] [id number]
[2019-09-30 12:38] VITALS: BP 112/71
--- NOTE | 2019-09-30 16:16 | MORECARE ---
CASE MANAGEMENT DISCHARGE SUMMARY PATIENT: GREGORIO PEÑA UNIT: [id number] ADM DATE: 09/24/19 AGE: 84 : 36 SEX: M ROOM/BED: D.2220 AUTHOR: TESSA ARAUJO PHYSICIAN: REFERRING PHYSICIAN: JOSH MORENO MD DATE OF SERVICE: 09/30/19 Discharge Plan Patient Name: GREGORIO PEÑA Facility: [facility]:[place] : 1935 Planned Disposition: Anticipated Discharge Date: Discharge Date: Expected LOS: Initial Reviewer: [email or web address] Initial Review Date: 09/30/2019 Generated: 09/30/19 5:15 pm Comments DCP- Discharge Planning Updated by [email or web address]: Molly Sequeira on 09/30/19 3:[address] Patient Name: GREGORIO PEÑA Admission Status: ER Accout number: [id number] Admission Date: 09-24-2019 : 1935 Admission Diagnosis:ANEMIA, UNSPECIFIED Attending: GRICEL Current LOS: 6 Anticipated DC Date: Planned Disposition: Primary Insurance: MEDICARE A & B Discharge Planning Comments: PER MEDICAL RECORDS PATIENT IS A RESIDENT OF [facility]. IS CURRENTLY WAITING FOR ARTERIOGRAM . CAN NOT HAVE PROCEDURE UNTIL INR IS LOWER. CM TO FOLLOW AND ASSIST NEEDED. Livestock Yard Attendant: Molly Sequeira Patient Name: GREGORIO PEÑA Page [id number] at 1616 All edits/amendments must be made on the electronic document DICTATION DATE: 09/30/19 1615 ASE CERTIFIED TECHNICIAN: MARIAN 09/30/19 1615 RPT#: [id number] DC DATE: STATUS: ADM IN [facility] [address] [place] [address] END OF REPORT
[2019-09-30 16:55] VITALS: BP 108/66
--- NOTE | 2019-09-30 18:31 | NUR ---
RESTING IN BED WITH EYES OPEN. NO C/O PAIN. NO S/S OF ACUTE DISTRESS NOTED. DENIES ANY NEEDS AT THIS TIME. CALL LIGHT IN REACH. WILL CONTINUE TO MONITOR.
[2019-09-30 20:00] VITALS: BP 110/66
--- NOTE | 2019-09-30 20:28 | NUR ---
ADMINISTERED MEDS PER ORDERS. PATIENT DENIES NEEDS. WILL CONTINUE TO MONITOR.
--- NOTE | 2019-09-30 22:25 | NUR ---
NOTIFIED BY MONITORS THAT THE PATIENT HAD A RUN OF 3 V-TACH. WILL CONTINUE TO MONITOR.
[2019-09-30 23:13] VITALS: BP 107/60
[2019-10-01 04:00] VITALS: BP 110/62
[2019-10-01 05:56] LABS: INR 1.94 (0.85-1.17); PROTIME 21.9 SECONDS (11.6-15.0)
[2019-10-01 05:57] LABS: BASOPHILS 0.2 % (0-2); EOSINOPHILS 2.6 % (0-7); HEMATOCRIT 33.2 % (42.0-54.0); HEMOGLOBIN 9.8 g/dL (13.5-17.5); IMMATURE GRANULOCYTES 0.2 % (0-5); LYMPHOCYTES 16.9 % (15-50); MCH 27.9 pg (26.0-34.0); MCHC 29.5 g/dL (31.0-37.0); MCV 94.6 fL (80.0-100.0); MEAN PLATELET VOLUME 9.8 fL (7.4-10.4); MONOCYTES 7.4 % (2-11); NEUTROPHILS 72.7 % (40-80); PLATELET COUNT 195 10x3/uL (130-400); RBC 3.51 10x6/uL (4.20-6.10); RDW 17.5 % (11.5-14.5); WBC 4.3 10x3/uL (4.8-10.8)
[2019-10-01 06:02] LABS: ALBUMIN 1.6 g/dL (3.4-5.0); ANION GAP 7.5 mmol/L (8-16); BILIRUBIN - TOTAL 0.27 mg/dL (0.2-1.3); CALCIUM 8.5 mg/dL (8.5-10.1); CREATININE - SERUM 1.4 mg/dL (0.6-1.3); POTASSIUM - SERUM 4.5 mmol/L (3.5-5.1); PROTEIN - SERUM 5.3 g/dL (6.4-8.2)
--- NOTE | 2019-10-01 07:16 | NUR ---
PT LYING IN BED ASLEEP, BIPAP ON, IV IN RT UPPER ARM NS@75, TELEMETRY READING 72 W/ BBB, NO S/SX OF DISTRESS, NO NEEDS VOICED, CL IN REACH, BED IN LOWEST POSITION. ASSUME PT CARE
[2019-10-01 08:45] VITALS: BP 133/65
--- NOTE | 2019-10-01 10:38 | NUR ---
PT LYING IN BED WITH HOB AT 45. PT ABLE TO EAT BREAKFAST THIS MORNING AND TAKE SCHEDULED MEDS AFTER I SET HIM UP. NO S/SX OF DISTRESS, CL IN REACH, CONTINUE WITH PLAN OF CARE
--- NOTE | 2019-10-01 12:22 | NUR ---
PT SON CALLED AND WAS VERY IRATE. STATED HE HAS NOT SEEN FATHER SINCE ADMITTED AND WANTED TO KNOW PT STATUS, ASKED PT SON FOR PASSCODE AND SON WAS UNABLE TO TELL ME. EXPLAINED TO PT SON THAT DUE TO COVID GUIDELINES PATIENTS ARE ONLY ALLOWED ONE WELL VISITOR PER DAY. 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 PT IS LYING IN BED, NO S/SX OF DISTRESS, CL IN REACH CONTINUE WITH PLAN OF CARE
--- NOTE | 2019-10-01 12:46 | NUR ---
Nutrition follow-up: Diet: ADA consistent CHO PO intake remains ~25% of meals Pt waiting for surgery; postponed until Monday Labs reviewed Last wt: 178# No BM charted since admit Wt: 177# RDN will continue to monitor patients progress.
[2019-10-01 14:25] VITALS: BP 120/49
[2019-10-01 18:33] VITALS: BP 137/73
--- NOTE | 2019-10-01 19:21 | NUR ---
I have reviewed this patient and I concur with the Shift Assessment completed by the Licensed Practical Nurse today this shift.
[2019-10-01 20:00] VITALS: BP 129/63
--- NOTE | 2019-10-01 20:00 | NUR ---
PT SITTING UP IN BED WITHOUT DISTRESS. IV RIGHT UPPER ARM INFUSING NS @ 50. O2 6L/NC. FEET PROPPED ON PILLOW. BILAT SWELLING, REDNESS AND NECROSIS TO RIGHT FOOT TOES AND HEEL. REMINDED PT HE NPO AFTER MN, GIVEN HS SNACK. PT ATE 100% OF JOSEPH CRACKERS AND MILK. DENIES OTHER NEEDS AT THIS TIME. BED ALARM ON, CL IN REACH, WILL CTM
[2019-10-02] VITALS: BP 114/52
[2019-10-02 04:00] VITALS: BP 115/66; BP 118/59
[2019-10-02 06:23] LABS: ALBUMIN 1.7 g/dL (3.4-5.0); ANION GAP 7.2 mmol/L (8-16); BILIRUBIN - TOTAL 0.26 mg/dL (0.2-1.3); CALCIUM 8.4 mg/dL (8.5-10.1); CARBON DIOXIDE 30.6 mmol/L (21.0-32.0); CREATININE - SERUM 1.5 mg/dL (0.6-1.3); MAGNESIUM - SERUM 1.9 mg/dL (1.8-2.4); POTASSIUM - SERUM 4.8 mmol/L (3.5-5.1); PROTEIN - SERUM 5.7 g/dL (6.4-8.2)
[2019-10-02 06:52] LABS: INR 1.2 (0.85-1.17); PROTIME 15.1 SECONDS (11.6-15.0)
[2019-10-02 06:55] LABS: BASOPHILS 0.2 % (0-2); EOSINOPHILS 2.4 % (0-7); HEMATOCRIT 35.8 % (42.0-54.0); HEMOGLOBIN 10.2 g/dL (13.5-17.5); IMMATURE GRANULOCYTES 0.2 % (0-5); LYMPHOCYTES 17.9 % (15-50); MCH 27.3 pg (26.0-34.0); MCHC 28.5 g/dL (31.0-37.0); MEAN PLATELET VOLUME 10.1 fL (7.4-10.4); MONOCYTES 7.6 % (2-11); NEUTROPHILS 71.7 % (40-80); PLATELET COUNT 212 10x3/uL (130-400); RBC 3.73 10x6/uL (4.20-6.10); RDW 17.5 % (11.5-14.5)
--- NOTE | 2019-10-02 07:36 | NUR ---
PT INR IS 1.2 TODAY MAY POSSIBLY HAVE ARTERIOGRAM TODAY. PT IS ASLEEP IN BED, HAS NOT WANTED TO KEEP BIPAP ON ALL NIGHT PER PM NURSE, PT O2 SOMEYIMES NOT IN AND PT WOULD GO DOWN INTO THE 60'S. WILL MONITOR AND DO ROUNDS MORE FREQUENTLY TO MAKE SURE PT IS KEEPING ON. BLLE EDEMATOUS, IV IN RT UPPER ARM NS @50. NO S/SX OF DISTRESS, CONTINUE WITH PLAN OF CARE
--- NOTE | 2019-10-02 09:30 | NUR ---
PT ORDERED DOBUTAMINE DRIP BY CARDIOLOGY, UNABLE TO START ON TIS UNIT AND PT MUST BE TRANSFERRED TO M2, CALLED HOUSE SUPERVISER AND INFORMED OF BED NEEDED AND ALSO TOLD ASSOCIATE DIRECTOR FINANCE, PT TO HAVE ARTERIOGRAM THIS AFTERNOON ABOUT 1PM ALSO. NO NEEDS AT THIS TIME. CONTINUE WITH PLAN OF CARE
[2019-10-02 09:50] VITALS: BP 150/66
[2019-10-02 13:28] VITALS: BP 129/68
--- NOTE | 2019-10-02 17:50 | NUR ---
CALLED AND GAVE REPORT TO ROBBIE RASHEED, PT IV IN RT UPPER ARM HAS DRIP RUNNING AND ABX HAS BEEN RESCHEDULED, ADMINISTERED SCHEDULED MEDS AND FLOWER GRADER CLEANED PT BEFORE TRANSFER.
--- NOTE | 2019-10-02 18:14 | NUR ---
ARRIVE TO ROOM VIA BED FROM MED SURG. ALERT. DOBUTAMINE DRIP INFUSING ORDERED. UNCONTROLLED AFIB BBB 112 ON TELEMETRY. O2 @ 6L NC. CONTINUE PLAN OF CARE AND SAFETY PRECAUTIONS.
--- NOTE | 2019-10-02 21:08 | NUR ---
HS MEDS GIVEN WITH FRESH ICE WATER. BS 185, COVERED PER S/S. PT DENIES PAIN OR NEEDS, BED LOW, CL IN REACH.
[2019-10-03] VITALS: BP 124/49
--- NOTE | 2019-10-03 02:45 | NUR ---
RESTING WITH EYES CLOSED, RESPERATIONS EVEN, NO S/S DISTRESS NOTED.
[2019-10-03 04:00] VITALS: BP 131/45
[2019-10-03 05:38] LABS: BASOPHILS 0.2 % (0-2); EOSINOPHILS 2.8 % (0-7); HEMATOCRIT 37.7 % (42.0-54.0); HEMOGLOBIN 10.9 g/dL (13.5-17.5); IMMATURE GRANULOCYTES 0.2 % (0-5); LYMPHOCYTES 16.8 % (15-50); MCH 27.5 pg (26.0-34.0); MCHC 28.9 g/dL (31.0-37.0); MEAN PLATELET VOLUME 10.6 fL (7.4-10.4); MONOCYTES 8.5 % (2-11); NEUTROPHILS 71.5 % (40-80); PLATELET COUNT 182 10x3/uL (130-400); RBC 3.97 10x6/uL (4.20-6.10); RDW 17.5 % (11.5-14.5); WBC 4.4 10x3/uL (4.8-10.8)
[2019-10-03 06:07] LABS: ANION GAP 9.8 mmol/L (8-16); BILIRUBIN - TOTAL 0.35 mg/dL (0.2-1.3); CALCIUM 8.4 mg/dL (8.5-10.1); CARBON DIOXIDE 26.9 mmol/L (21.0-32.0); CREATININE - SERUM 1.5 mg/dL (0.6-1.3); POTASSIUM - SERUM 4.7 mmol/L (3.5-5.1); PROTEIN - SERUM 5.5 g/dL (6.4-8.2)
[2019-10-03 08:33] LABS: INR 1.06 (0.85-1.17); PROTIME 13.8 SECONDS (11.6-15.0)
[2019-10-03 11:22] VITALS: BP 131/65
--- NOTE | 2019-10-03 11:28 | NUR ---
RECEIVED VERBAL ORDERS PER JACLYN PEREZ TO PLACE RESTREPO ORDER.
--- NOTE | 2019-10-03 12:26 | NUR ---
Nutrition Follow-up: Pt ate fairly well this AM (~75%). Diet: Diabetic Wt: 177# (09/25); 171.9# (09/23) Last BM: 09/30 Labs noted: Glu 119, Ca 8.4, Alb 2.0 Meds noted: Lasix, Humalog, Coumadin, electrolyte protocol -Encourage PO intake and honor food preferences within diet restrictions. -Need new wt; noted daily wts ordered. -RD following.
--- NOTE | 2019-10-03 12:31 | NUR ---
16 ENGLISH RESTREPO CATH PLACED PER JACLYN WEB APPLICATIONS DEVELOPER VERBAL ORDER FOR ACUTE RETENTION. PLACEMENT WAS A SUCCESS WITH 25ML OUTPUT RECORDED IMMEDIATELY. SECURED WITH STAT LOCK. WILL CTM.
[2019-10-03 14:57] VITALS: BP 135/65
[2019-10-03 18:54] VITALS: BP 109/58
--- NOTE | 2019-10-03 19:30 | NUR ---
DR CAMPBELL AT BED SIDE, ASKED DR CAMPBELL IF HE WOULD LOOK AT PTS PENIS DUE TO SWELLING AFTER INSERTION OF RESTREPO CATH THAT WAS PLACED EARLIER IN THE DAY. DR CAMPBELL STATED " PT IS THIRD SPACING AND FLUID WILL ACCUMULATE AT THE LOWEST POINT, LONG YOU ARE GETTING URINE OUT IT WILL BE OK, AND LONG YOU ARE GETTING URINE OUT, DONT TAKE IT OUT"
[2019-10-03 20:00] VITALS: BP 140/71
--- NOTE | 2019-10-03 23:25 | NUR ---
RT AT BED SIDE, PLACED PTS ON HIS BIPAP.
[2019-10-04] VITALS (19 sets, daily range): BP systolic 114–132; BP diastolic 63–85
[2019-10-04 05:48] LABS: BASOPHILS 0.2 % (0-2); EOSINOPHILS 4.2 % (0-7); HEMATOCRIT 36.2 % (42.0-54.0); HEMOGLOBIN 10.4 g/dL (13.5-17.5); IMMATURE GRANULOCYTES 0.4 % (0-5); LYMPHOCYTES 14.2 % (15-50); MCH 27.1 pg (26.0-34.0); MCHC 28.7 g/dL (31.0-37.0); MCV 94.3 fL (80.0-100.0); MEAN PLATELET VOLUME 9.8 fL (7.4-10.4); PLATELET COUNT 156 10x3/uL (130-400); RBC 3.84 10x6/uL (4.20-6.10); RDW 17.8 % (11.5-14.5); WBC 4.5 10x3/uL (4.8-10.8)
[2019-10-04 06:06] LABS: INR 1.05 (0.85-1.17); PROTIME 13.6 SECONDS (11.6-15.0)
[2019-10-04 06:26] LABS: ALBUMIN 1.9 g/dL (3.4-5.0); ANION GAP 8.2 mmol/L (8-16); BILIRUBIN - TOTAL 0.31 mg/dL (0.2-1.3); CALCIUM 8.6 mg/dL (8.5-10.1); CARBON DIOXIDE 30.3 mmol/L (21.0-32.0); CREATININE - SERUM 1.4 mg/dL (0.6-1.3); POTASSIUM - SERUM 4.5 mmol/L (3.5-5.1); PROTEIN - SERUM 5.5 g/dL (6.4-8.2)
--- NOTE | 2019-10-04 09:56 | NUR ---
REPORT CALLED TO ICU. WILL TRANSFER PT TO 2300.
--- NOTE | 2019-10-04 10:28 | NUR ---
received from med ii via bed to icu 6
--- NOTE | 2019-10-04 10:49 | NUR ---
Nutrition follow-up: Pt now in ICU for worsening SOB BIPAP in place Labs reviewed Diet: Consistent CHO RDN following.
--- NOTE | 2019-10-04 18:40 | NUR ---
1030 WEARING BPAP WTIH 100% 02
--- NOTE | 2019-10-04 18:41 | NUR ---
[address] DANIEL ABG RESULTS GIVEN DECREASED 100% 02 DOWN TO 40% ON BPAP
--- NOTE | 2019-10-04 18:43 | NUR ---
1230 ATTEMPTED TO START NEW IV PATIENT SLAPPED AT NURSE AND REFUSED TO ALLOW A STICK. OBTAINED CONSULT FOR VASCULAR ASSESS NURSE
--- NOTE | 2019-10-04 18:45 | NUR ---
NOTIFIED PHARMACY SEVERAL TIMES FOR MISSING BUMEX GTT
--- NOTE | 2019-10-04 19:30 | NUR ---
BEDSIDE SHIFT REPORT COMPLETED, PT ON NASAL CANNULA AT THIS TIME VSS. AWAKE, ALERT, CONFUSED. AFEBRILE. CPOC
--- NOTE | 2019-10-04 20:00 | NUR ---
FULL SHIFT ASSESSMENT COMPLETED, SEE FLOWSHEET
--- NOTE | 2019-10-04 22:00 | NUR ---
RT AT BEDSIDE PATIENT PLACED ON BIPAP @ 40% PER ORDER
--- NOTE | 2019-10-04 23:15 | NUR ---
REASSESSMENT COMPLETED, PT RESTING WITH EYES CLOSED, AROUSES TO VOICE. IV LINES AND TUBING CHECKED AND CHANGED AT THIS TIME. RUPPER ARM 20G PATENT, IV DRIPS RUNNING AT APPROPRIATE ORDERED DOSE. VSS CPOC
[2019-10-05] VITALS (14 sets, daily range): BP systolic 93–131; BP diastolic 57–88
--- NOTE | 2019-10-05 00:58 | NUR ---
PT RESTING COMFORTABLY NO SIGNS OF DISTRESS. EVEN RISE AND FALL OF CHEST. BIPAP IS STILL IN USE. REPOSITIONED PATIENT FOR COMFORT AND SKIN INTEGRITY, AROUSES TO STIMULI. VSS CPOC
--- NOTE | 2019-10-05 02:43 | NUR ---
GRAND DAUGHTER CALLED IN FOR PATIENT STATUS UPDATE, PASSWORD GIVEN ALL QUESTIONS ANSWERED AND UPDATE GIVEN.
--- NOTE | 2019-10-05 03:15 | NUR ---
REASSESSMENT COMPLETED SEE FLOWSHEET
[2019-10-05 05:11] LABS: BASOPHILS 0 % (0-2); EOSINOPHILS 4.9 % (0-7); HEMATOCRIT 33.9 % (42.0-54.0); HEMOGLOBIN 10.2 g/dL (13.5-17.5); LYMPHOCYTES 11.1 % (15-50); MCH 27.7 pg (26.0-34.0); MCHC 30.1 g/dL (31.0-37.0); MCV 92.1 fL (80.0-100.0); MEAN PLATELET VOLUME 9.5 fL (7.4-10.4); MONOCYTES 7.5 % (2-11); NEUTROPHILS 76.5 % (40-80); PLATELET COUNT 167 10x3/uL (130-400); RBC 3.68 10x6/uL (4.20-6.10); RDW 17.7 % (11.5-14.5); WBC 5.3 10x3/uL (4.8-10.8)
[2019-10-05 05:14] LABS: INR 1.05 (0.85-1.17); PROTIME 13.6 SECONDS (11.6-15.0)
--- NOTE | 2019-10-05 05:15 | NUR ---
PT AROUSES TO VOICE, BIPAP REMOVED AND NASAL CANNULA PROVIDED AT THIS TIME. CHG BATH COMPLETED VSS CPOC
[2019-10-05 05:40] LABS: ALBUMIN 2.1 g/dL (3.4-5.0); ANION GAP 8.1 mmol/L (8-16); BILIRUBIN - TOTAL 0.72 mg/dL (0.2-1.3); CALCIUM 8.6 mg/dL (8.5-10.1); CARBON DIOXIDE 33.1 mmol/L (21.0-32.0); CREATININE - SERUM 1.3 mg/dL (0.6-1.3); MAGNESIUM - SERUM 1.5 mg/dL (1.8-2.4); PHOSPHOROUS 2.7 mg/dL (2.5-4.9); POTASSIUM - SERUM 4.2 mmol/L (3.5-5.1); PROTEIN - SERUM 5.7 g/dL (6.4-8.2)
--- NOTE | 2019-10-05 07:52 | NUR ---
LYING IN BED RESTING AT THIS TIME WITH EYES CLOSED. RESPIRATIONS STEADY AND UNLABORED RATE. AWAKENS EASILY WHEN SPOKEN TO. VSS. TURNED Q2H. ORAL CARE PROVIDED Q2H. WILL CONTINUE PLAN OF CARE.
--- NOTE | 2019-10-05 09:52 | NUR ---
LYING IN BED RESTING AT THIS TIME. VSS. NO ACUTE DISTRESS NOTED. CALL LIGHT IN REACH. WILL CONTINUE PLAN OF CARE.
--- NOTE | 2019-10-05 11:22 | NUR ---
PER WM WONG TO TRANSFER PT TO FLOOR FROM PULMONOLOGY.
--- NOTE | 2019-10-05 11:24 | NUR ---
PER DR NIXON, TRANSFER PT TO FLOOR.
--- NOTE | 2019-10-05 13:26 | NUR ---
LYING IN BED AWAKE AT THIS TIME. VSS. NO ACUTE DISTRESS NOTED. CALL LIGHT IN REACH WITH PERSONAL ITEMS IN REACH. WILL CONTINUE PLAN OF CARE.
--- NOTE | 2019-10-05 15:51 | NUR ---
REPORT CALLED TO RECIEVING NURSE. WILL TRANSFER PT SHORTLY.
--- NOTE | 2019-10-05 15:54 | NUR ---
REPORT CALLED TO RECIEVING NURSE. WILL TRANSFER PT WHEN ROOM READY.
--- NOTE | 2019-10-05 16:11 | NUR ---
INCONTINENT BOWEL MOVEMENT NOTED AT THIS TIME. FORMED BROWN SMALL. TOTAL LINEN CHANGE PROVIDED ALONG WITH RESTREPO CARE. VSS. NO ACUTE DISTRESS NOTED. WILL CONTINUE PLAN OF CARE.
--- NOTE | 2019-10-05 17:08 | NUR ---
TRANSFERRED TO ROOM 2117 AT THIS TIME VIA BED ACCOMPANIED BY HOSPITAL STAFF. VSS. NO ACUTE DISTRESS NOTED. TRANSFERRED WITH ALL PERSONAL ITEMS. NO FURTHER ACTIONS.
--- NOTE | 2019-10-05 21:24 | NUR ---
BEDTIME MEDS GIVEN.
[2019-10-06 05:00] VITALS: BP 136/54
[2019-10-06 08:02] LABS: HEMATOCRIT 32.5 % (42.0-54.0); HEMOGLOBIN 9.7 g/dL (13.5-17.5); LYMPHOCYTES 12.2 % (15-50); MCH 27.7 pg (26.0-34.0); MCHC 29.8 g/dL (31.0-37.0); MCV 92.9 fL (80.0-100.0); MEAN PLATELET VOLUME 9.5 fL (7.4-10.4); NEUTROPHILS 81.5 % (40-80); PLATELET COUNT 150 10x3/uL (130-400); RDW 19.2 % (11.5-14.5); WBC 6.2 10x3/uL (4.8-10.8)
[2019-10-06 08:11] LABS: INR 1.2 (0.85-1.17); PROTIME 15.1 SECONDS (11.6-15.0)
[2019-10-06 08:19] LABS: ANION GAP 7.8 mmol/L (8-16); BILIRUBIN - TOTAL 0.89 mg/dL (0.2-1.3); CALCIUM 9.1 mg/dL (8.5-10.1); CARBON DIOXIDE 36.9 mmol/L (21.0-32.0); CREATININE - SERUM 1.1 mg/dL (0.6-1.3); MAGNESIUM - SERUM 1.4 mg/dL (1.8-2.4); PHOSPHOROUS 2.6 mg/dL (2.5-4.9); POTASSIUM - SERUM 3.7 mmol/L (3.5-5.1); PROTEIN - SERUM 5.7 g/dL (6.4-8.2)
[2019-10-06 08:25] LABS: ALBUMIN 2.7 g/dL (3.4-5.0)
[2019-10-06 10:06] VITALS: BP 115/68
[2019-10-06 18:06] VITALS: BP 132/58
--- NOTE | 2019-10-06 20:10 | NUR ---
1944 REPORT RECIEVED AND INITITAL ROUNDS COMPLETED. PT RESTING IN BED. CALL LIGHT IN REACH. NO DISTRESS. SEE ASSESSMENT.
--- NOTE | 2019-10-06 20:27 | NUR ---
PERSONAL CARE PROVIDED. PT PULLED UP AND REPOSITIONED X 2 STAFF. RESTREPO PATENT TO BEDSIDE DRAIN BAG WITH YELLOW URINE. IV DOBUTAMINE INFUSING AT 12ML/HR AND IV BUMEX DRIP INFUSING AT 2.5ML/HR TO DON PIV WITH IV EXTENSION TUBING. HEEL PROTECTORS IN PLACE TO BOTH FEET. CALL LIGHT IN REACH.
[2019-10-06 21:30] VITALS: BP 118/72
[2019-10-07 04:29] VITALS: BP 122/68
[2019-10-07 07:07] LABS: ANION GAP 6.2 mmol/L (8-16); CARBON DIOXIDE 37.1 mmol/L (21.0-32.0); CREATININE - SERUM 1.2 mg/dL (0.6-1.3); INR 1.14 (0.85-1.17); POTASSIUM - SERUM 3.3 mmol/L (3.5-5.1); PROTIME 14.6 SECONDS (11.6-15.0)
[2019-10-07 07:10] LABS: MAGNESIUM - SERUM 1.8 mg/dL (1.8-2.4)
[2019-10-07 07:15] LABS: HEMATOCRIT 32.2 % (42.0-54.0); HEMOGLOBIN 9.8 g/dL (13.5-17.5); LYMPHOCYTES 10.4 % (15-50); MCH 28.4 pg (26.0-34.0); MCHC 30.4 g/dL (31.0-37.0); MCV 93.3 fL (80.0-100.0); MEAN PLATELET VOLUME 9.7 fL (7.4-10.4); NEUTROPHILS 80.1 % (40-80); PLATELET COUNT 149 10x3/uL (130-400); RBC 3.45 10x6/uL (4.20-6.10); RDW 18.9 % (11.5-14.5); WBC 6.4 10x3/uL (4.8-10.8)
--- NOTE | 2019-10-07 07:15 | NUR ---
RECEOVED PT IN BED EYES CLOSED RESP UNLABORED SKIN W/D COLOR WNL NAD NOTED
[2019-10-07 09:00] VITALS: BP 139/64
[2019-10-07 12:00] VITALS: BP 96/47
[2019-10-07 15:00] VITALS: BP 101/50
--- NOTE | 2019-10-07 16:01 | MORECARE ---
CASE MANAGEMENT DISCHARGE SUMMARY PATIENT: GREGORIO PEÑA UNIT: [id number] ADM DATE: 09/24/19 AGE: 84 : 36 SEX: M ROOM/BED: D.2795 AUTHOR: TESSA ARAUJO PHYSICIAN: REFERRING PHYSICIAN: JOSH MORENO MD DATE OF SERVICE: 10/07/19 Discharge Plan Patient Name: GREGORIO PEÑA Facility: [facility]:[place] : 1935 Planned Disposition: Anticipated Discharge Date: Discharge Date: Expected LOS: Initial Reviewer: [email or web address] Initial Review Date: 09/30/2019 Generated: 10/07/19 5:01 pm DCP- Discharge Planning Updated by [email or web address]: Molly Sequeira on 09/30/19 3:[address] Patient Name: GREGORIO PEÑA Admission Status: ER Accout number: [id number] Admission Date: 09-24-2019 : 1935 Admission Diagnosis:ANEMIA, UNSPECIFIED Attending: GRICEL Current LOS: 6 Anticipated DC Date: Planned Disposition: Primary Insurance: MEDICARE A & B Discharge Planning Comments: PER MEDICAL RECORDS PATIENT IS A RESIDENT OF [facility]. IS CURRENTLY WAITING FOR ARTERIOGRAM . CAN NOT HAVE PROCEDURE UNTIL INR IS LOWER. CM TO FOLLOW AND ASSIST NEEDED. Steel Die Printer: Molly Sequeira Last DP export: 09/30/19 3:15 pm Patient Name: GREGORIO PEÑA Page [id number] at 1601 All edits/amendments must be made on the electronic document DICTATION DATE: 10/07/19 1601 SERVICE DIRECTOR: MARIAN 10/07/19 1601 RPT#: [id number] DC DATE: STATUS: ADM IN [facility] [address] [place] [address] END OF REPORT
--- NOTE | 2019-10-07 19:45 | NUR ---
REPORT RECIEVED AND INITIAL ROUNDS COMPLETED. PT RESTING IN BED. PLEASANT MOOD. NO DISTRESS. SEE ASSESSMENT. CPOC.
[2019-10-07 21:21] VITALS: BP 141/48
[2019-10-08] VITALS (7 sets, daily range): BP systolic 105–119; BP diastolic 57–78
--- NOTE | 2019-10-08 06:00 | NUR ---
NO CHANGE FROM INITIAL SHIFT ASSESSMENT. PT HAS BEEN NPO SINCE MIDNIGHT FOR AM PROCEDURE. RESTREPO PATENT. IVF INFUSING. NO DISTRESS. CPOC.
[2019-10-08 06:44] LABS: ANION GAP 6.4 mmol/L (8-16); CALCIUM 8.7 mg/dL (8.5-10.1); CARBON DIOXIDE 38.9 mmol/L (21.0-32.0); CREATININE - SERUM 1.2 mg/dL (0.6-1.3); MAGNESIUM - SERUM 1.8 mg/dL (1.8-2.4); POTASSIUM - SERUM 3.3 mmol/L (3.5-5.1)
[2019-10-08 07:08] LABS: APTT 30.3 SECONDS (22.8-39.4); INR 1.12 (0.85-1.17); PROTIME 14.4 SECONDS (11.6-15.0)
[2019-10-08 07:16] LABS: HEMATOCRIT 35.3 % (42.0-54.0); HEMOGLOBIN 10.5 g/dL (13.5-17.5); LYMPHOCYTES 14.6 % (15-50); MCH 27.9 pg (26.0-34.0); MCHC 29.7 g/dL (31.0-37.0); MCV 93.6 fL (80.0-100.0); MEAN PLATELET VOLUME 10.7 fL (7.4-10.4); NEUTROPHILS 74.6 % (40-80); PLATELET COUNT 169 10x3/uL (130-400); RBC 3.77 10x6/uL (4.20-6.10); RDW 18.6 % (11.5-14.5); WBC 5.9 10x3/uL (4.8-10.8)
--- NOTE | 2019-10-08 10:06 | MORECARE ---
CASE MANAGEMENT DISCHARGE SUMMARY PATIENT: GREGORIO PEÑA UNIT: [id number] ADM DATE: 09/24/19 AGE: 84 : 36 SEX: M ROOM/BED: D.7160 AUTHOR: TESSA ARAUJO PHYSICIAN: REFERRING PHYSICIAN: JOSH MORENO MD DATE OF SERVICE: 10/08/19 Discharge Plan Patient Name: GREGORIO PEÑA Facility: [facility]:[place] : 1935 Planned Disposition: Anticipated Discharge Date: Discharge Date: Expected LOS: Initial Reviewer: [email or web address] Initial Review Date: 09/30/2019 Generated: 10/08/19 11:06 am Comments DCP- Discharge Planning Updated by [email or web address]: Roxana Snider on 10/08/19 9:[address] CM met with patient to discuss initial discharge planning. Patient is in agreement to proceed with the assessment. 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 Patient is alert/oriented. Stairs/steps: 0. PCP: Eva. Pharmacy: [facility]. Patient gives permission to speak with family members. Emergency contact: Nubia Tolbert (dtr) [phone]. Patient is in agreement that he will need further rehab assist. Patient has been hospitalized within the past 30 days.. 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 Transportation at time of discharge: Nursing facility. DCP- Discharge Planning Updated by [email or web address]: Molly Sequeira on 09/30/19 3:[address] Patient Name: GREGORIO PEÑA Admission Status: ER Accout number: [id number] Admission Date: 09-24-2019 : 1935 Admission Diagnosis:ANEMIA, UNSPECIFIED Attending: GRICEL Current LOS: 6 Anticipated DC Date: Planned Disposition: Primary Insurance: MEDICARE A & B Discharge Planning Comments: PER MEDICAL RECORDS PATIENT IS A RESIDENT OF [facility]. IS CURRENTLY WAITING FOR ARTERIOGRAM . CAN NOT HAVE PROCEDURE UNTIL INR IS LOWER. CM TO FOLLOW AND ASSIST NEEDED. Detailer Pharmaceuticals: Molly Sequeira Last DP export: 10/07/19 3:01 p Patient Name: GREGORIO PEÑA Page [phone] at 1006 All edits/amendments must be made on the electronic document DICTATION DATE: 10/08/19 100 MATCH MARKER: MARIAN 10/08/19 100 RPT#: [id number] DC DATE: STATUS: ADM IN [facility] [address] [place] [address] END OF REPORT
--- NOTE | 2019-10-08 10:13 | MORECARE ---
CASE MANAGEMENT DISCHARGE SUMMARY PATIENT: GREGORIO PEÑA UNIT: [id number] ADM DATE: 09/24/19 AGE: 84 : 36 SEX: M ROOM/BED: D.5431 AUTHOR: GAYLE,DOC PHYSICIAN: REFERRING PHYSICIAN: JOSH MORENO MD DATE OF SERVICE: 10/08/19 Discharge Plan Patient Name: GREGORIO PEÑA Facility: [facility]:[place] : 1935 Planned Disposition: Anticipated Discharge Date: Discharge Date: Expected LOS: Initial Reviewer: [email or web address] Initial Review Date: 09/30/2019 Generated: 10/08/19 11:13 am Comments DCP- Discharge Planning Updated by [email or web address]: Roxana Snider on 10/08/19 9:[address] CM contacted patient's daughter, Nubia and she is in agreement to a nursing facility. She would like the patient to be transferred to [facility]. CM encouraged daughter to be in contact with [facility]. CM will fax required information to [facility]. CM met with patient to discuss initial discharge planning. Patient is in agreement to proceed with the assessment. Patient reports that he lives at [facility] N/R, [facility]. Patient is alert/oriented. Stairs/steps: 0. PCP: Eva. Pharmacy: [facility]. Patient gives permission to speak with family members. Emergency contact: Nubia Tolbert (dtr) [phone]. Patient is in agreement that he will need further rehab assist. Patient has been hospitalized within the past 30 days.. 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 Transportation at time of discharge: Nursing facility. DCP- Discharge Planning Updated by [email or web address]: Molly Sequeira on 09/30/19 3:[address] Patient Name: GREGORIO PEÑA Admission Status: ER Accout number: [id number] Admission Date: 09-24-2019 : 1935 Admission Diagnosis:ANEMIA, UNSPECIFIED Attending: GRICEL Current LOS: 6 Anticipated DC Date: Planned Disposition: Primary Insurance: MEDICARE A & B Discharge Planning Comments: PER MEDICAL RECORDS PATIENT IS A RESIDENT OF [facility]. IS CURRENTLY WAITING FOR ARTERIOGRAM . CAN NOT HAVE PROCEDURE UNTIL INR IS LOWER. CM TO FOLLOW AND ASSIST NEEDED. Hand Candy Molder: Molly Varela DP export: 10/08/19 9:06 a Patient Name: GREGORIO PEÑA Page [phone] at 1013 All edits/amendments must be made on the electronic document DICTATION DATE: 10/08/19 1013 CHARACTER ACTRESS: MARIAN 10/08/19 1013 RPT#: [id number] DC DATE: STATUS: ADM IN [facility] [address] [place] [address] END OF REPORT
--- NOTE | 2019-10-08 12:59 | NUR ---
Nutrition Follow-up: NPO p MN for planned arteriogram today. Diet: NPO PO intake: 67% avg x 3 meals yesterday Wt: 176.3# (10/07); 171.9# (09/23) Last BM: 10/04 Labs noted: Glu 150, K+ 3.3 Meds noted: NS @ KVO, Humalog, electrolyte protocol -Resume diet following procedure as medically feasible. -Monitor wt; noted daily wts ordered. -RD following.
--- NOTE | 2019-10-08 17:39 | NUR ---
RECEIVED PT FROM PACU. PT IS ASLEEP WITH EYES CLOSED. RR EVEN AND UNLABORED ON 3L 02. VSS AND WNL. WILL CTM.
--- NOTE | 2019-10-08 21:08 | NUR ---
PATIENT REMOVED HIS RESTREPO CATHETER. MODERATE AMOUNT OF BLEEDING, WHICH HAS STOPPED AT THIS TIME. LOBITO FONG APN NOTIFIED. ORDERS GIVEN. RESTREPO CATHETER CAN REMAIN OUT IF PATIENT URINATES. IF HE DOES NOT RESTREPO NEEDS TO BE REPLACED.
[2019-10-09] VITALS: BP 102/64
--- NOTE | 2019-10-09 00:34 | NUR ---
REFUSED TO COMPLY WITH THE ADMINISTRATION OF BIPAP
--- NOTE | 2019-10-09 02:45 | NUR ---
PATIENT HAS NOT URINATED PER ORDERS GIVEN BY TINNING MACHINE SET UP OPERATOR EARLIER IN SHIFT. REPLACED RESTREPO WITH A 18 LAO. PATIENT CONTINUES TO PULL AND PICK AT RESTREPO,
[2019-10-09 06:08] LABS: HEMATOCRIT 38.1 % (42.0-54.0); HEMOGLOBIN 11.2 g/dL (13.5-17.5); LYMPHOCYTES 11.7 % (15-50); MCH 27.7 pg (26.0-34.0); MCHC 29.4 g/dL (31.0-37.0); MCV 94.3 fL (80.0-100.0); NEUTROPHILS 76.8 % (40-80); PLATELET COUNT 157 10x3/uL (130-400); RBC 4.04 10x6/uL (4.20-6.10); RDW 18.4 % (11.5-14.5); WBC 4.6 10x3/uL (4.8-10.8)
[2019-10-09 06:19] LABS: ANION GAP 6.2 mmol/L (8-16); CALCIUM 8.8 mg/dL (8.5-10.1); CREATININE - SERUM 1.3 mg/dL (0.6-1.3); MAGNESIUM - SERUM 1.7 mg/dL (1.8-2.4); POTASSIUM - SERUM 3.2 mmol/L (3.5-5.1)
[2019-10-09 09:00] VITALS: BP 109/59
[2019-10-09 09:24] VITALS: BP 113/60
[2019-10-09 11:00] VITALS: BP 143/91
--- NOTE | 2019-10-09 13:05 | MORECARE ---
CASE MANAGEMENT DISCHARGE SUMMARY PATIENT: GREGORIO PEÑA UNIT: [id number] ADM DATE: 09/24/19 AGE: 84 : 36 SEX: M ROOM/BED: D.9053 AUTHOR: GAYLE,DOC PHYSICIAN: REFERRING PHYSICIAN: JOSH MORENO MD DATE OF SERVICE: 10/09/19 Discharge Plan Patient Name: GREGORIO PEÑA Facility: [facility]:[place] : 1935 Planned Disposition: Anticipated Discharge Date: Discharge Date: Expected LOS: Initial Reviewer: [email or web address] Initial Review Date: 09/30/2019 Generated: 10/09/19 2:05 pm Comments DCP- Discharge Planning Updated by [email or web address]: Roxana Snider on 10/09/19 12:[address] CM contacted Josh, with [facility] and the patient's bed is still available when discharged. DCP- Discharge Planning Updated by [email or web address]: Roxana Snider on 10/08/19 9:[address] CM contacted patient's daughter, Nubia and she is in agreement to a nursing facility. She would like the patient to be transferred to [facility]. CM encouraged daughter to be in contact with [facility]. CM will fax required information to [facility]. CM met with patient to discuss initial discharge planning. Patient is in agreement to proceed with the assessment. 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 Patient is alert/oriented. Stairs/steps: 0. PCP: Eva. Pharmacy: [facility]. Patient gives permission to speak with family members. Emergency contact: Nubia Tolbert (dtr) [phone]. Patient is in agreement that he will need further rehab assist. Patient has been hospitalized within the past 30 days.. 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 Transportation at time of discharge: Nursing facility. DCP- Discharge Planning Updated by [email or web address]: Molly Sequeira on 09/30/19 3:[address] Patient Name: GREGORIO PEÑA Admission Status: ER Accout number: [id number] Admission Date: 09-24-2019 : 1935 Admission Diagnosis:ANEMIA, UNSPECIFIED Attending: GRICEL Current LOS: 6 Anticipated DC Date: Planned Disposition: Primary Insurance: MEDICARE A & B Discharge Planning Comments: PER MEDICAL RECORDS PATIENT IS A RESIDENT OF [facility]. IS CURRENTLY WAITING FOR ARTERIOGRAM . CAN NOT HAVE PROCEDURE UNTIL INR IS LOWER. CM TO FOLLOW AND ASSIST NEEDED. College Or University Business Manager: Molly Varela DP export: 10/08/19 9:13 a Patient Name: GREGORIO PEÑA Page [phone] at 1305 All edits/amendments must be made on the electronic document DICTATION DATE: 10/09/19 1305 CARD DECORATOR: MARIAN 10/09/19 1305 RPT#: [id number] DC DATE: STATUS: ADM IN [facility] [address] [place] [address] END OF REPORT
--- NOTE | 2019-10-09 13:12 | MORECARE ---
CASE MANAGEMENT DISCHARGE SUMMARY PATIENT: GREGORIO PEÑA UNIT: [id number] ADM DATE: 09/24/19 AGE: 84 : 36 SEX: M ROOM/BED: D.9340 AUTHOR: GAYLE,DOC PHYSICIAN: REFERRING PHYSICIAN: JOSH MORENO MD DATE OF SERVICE: 10/09/19 Discharge Plan Patient Name: GREGORIO PEÑA Facility: [facility]:[place] : 1935 Planned Disposition: Longterm Facility Anticipated Discharge Date: 10/11/19 Discharge Date: Expected LOS: 17 Initial Reviewer: [email or web address] Initial Review Date: 09/30/2019 Generated: 10/09/19 2:12 pm Comments DCP- Discharge Planning Updated by [email or web address]: Roxana Snider on 10/09/19 12:[address] CM contacted Josh, with [facility] and the patient's bed is still available when discharged. DCP- Discharge Planning Updated by [email or web address]: Roxana Snider on 10/08/19 9:[address] CM contacted patient's daughter, Nubia and she is in agreement to a nursing facility. She would like the patient to be transferred to [facility]. CM encouraged daughter to be in contact with [facility]. CM will fax required information to [facility]. CM met with patient to discuss initial discharge planning. Patient is in agreement to proceed with the assessment. 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 Patient is alert/oriented. Stairs/steps: 0. PCP: Eva. Pharmacy: [facility]. Patient gives permission to speak with family members. Emergency contact: Nubia Tolbert (dtr) [phone]. Patient is in agreement that he will need further rehab assist. Patient has been hospitalized within the past 30 days.. 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 Transportation at time of discharge: Nursing facility. DCP- Discharge Planning Updated by [email or web address]: Molly Sequeira on 09/30/19 3:[address] Patient Name: GREGORIO PEÑA Admission Status: ER Accout number: [id number] Admission Date: 09-24-2019 : 1935 Admission Diagnosis:ANEMIA, UNSPECIFIED Attending: GRICEL Current LOS: 6 Anticipated DC Date: Planned Disposition: Primary Insurance: MEDICARE A & B Discharge Planning Comments: PER MEDICAL RECORDS PATIENT IS A RESIDENT OF [facility]. IS CURRENTLY WAITING FOR ARTERIOGRAM . CAN NOT HAVE PROCEDURE UNTIL INR IS LOWER. CM TO FOLLOW AND ASSIST NEEDED. Senior Dentist: Molly Sequeira DCPIA - Discharge Planning Initial Assessment Updated by [email or web address]: Roxana Snider on 10/09/19 1:11 pm * Is the patient Alert and Oriented? Yes * How many steps to enter\exit or inside your home? * PCP Dr. Velasquez * Pharmacy [facility] * Preadmission Environment Longterm Facility * Facility Name [facility] * ADLs Partial Dependent * Partial ADLs (Assistance needed) Bathing Medication Management * Equipment Hospital Bed Oxygen Walker * Other Equipment Nursing facility supplies other DME * List name and contact numbers for known caregivers / representatives who currently or will assist patient after discharge: Nubia Tolbert (dtr) [phone] * Verbal permission to speak to the caregivers and representatives has been obtained from the patient. Yes * Community resources currently utilized None * Please name any agencies selected above. NA * Additional services required to return to the preadmission environment? No * Can the patient safely return to the preadmission environment? Yes * Has this patient been hospitalized within the prior 30 days at any hospital? No Last DP export: 10/09/19 12:05 p Patient Name: GREGORIO PEÑA Page [phone] at 1312 All edits/amendments must be made on the electronic document DICTATION DATE: 10/09/19 1312 PAROLE DIRECTOR: MARIAN 10/09/19 1312 RPT#: [id number] DC DATE: STATUS: ADM IN [facility] [address] [place] [address] END OF REPORT
--- NOTE | 2019-10-09 15:34 | NUR ---
CODE BLUE CALLED AT 1507. SEE CODE BLUE FORM.
[2019-10-09 15:45] LABS: LYMPHOCYTES 45.8 % (15-50); MCH 27.6 pg (26.0-34.0); MEAN PLATELET VOLUME 10.7 fL (7.4-10.4); NEUTROPHILS 47.9 % (40-80); RDW 18.5 % (11.5-14.5); WBC 5.1 10x3/uL (4.8-10.8)
--- NOTE | 2019-10-09 15:46 | NUR ---
VERBAL REPORT TAKEN FROM DR. HERNANDEZ REGARDING XRAY-RIGHT APICAL PNEUMOTHORAX 5%. NO RIB FRACTURE. ENT TUBE IN PLACE. THIS REPORT GIVEN TO HARRISON SMITH RN
--- NOTE | 2019-10-09 15:58 | NUR ---
OLDEST SON OF PATIENT - GREGORIO PEÑA AT AWAKE OVERNIGHT MONITOR STATING TO MYSELF AND PATRICIO RAMIREZ RN TO CONTINUE CPR FOR 10 MINUTES AND IF NO PROGRESS TO STOP.
[2019-10-09 16:04] LABS: HEMATOCRIT 27.1 % (42.0-54.0); HEMOGLOBIN 7.6 g/dL (13.5-17.5); MCV 98.5 fL (80.0-100.0); PLATELET COUNT 82 10x3/uL (130-400); RBC 2.75 10x6/uL (4.20-6.10)
[2019-10-09 16:18] LABS: APTT 37.8 SECONDS (22.8-39.4); CREATINE KINASE 81 UL (21-232); INR 2.01 (0.85-1.17); PROTIME 22.5 SECONDS (11.6-15.0)
[2019-10-09 16:19] LABS: D-DIMER-QUANTITATIVE 3.82 ug/mLFEU (0.20-0.54); PLATELET ESTIMATE DECREASED
[2019-10-09 17:03] LABS: ALBUMIN 1.4 g/dL (3.4-5.0); ANION GAP 13.4 mmol/L (8-16); BILIRUBIN - TOTAL 0.52 mg/dL (0.2-1.3); CARBON DIOXIDE 28.8 mmol/L (21.0-32.0); CREATININE - SERUM 1.9 mg/dL (0.6-1.3); MAGNESIUM - SERUM 1.6 mg/dL (1.8-2.4); POTASSIUM - SERUM 4.2 mmol/L (3.5-5.1); PROTEIN - SERUM 3.3 g/dL (6.4-8.2)
[2019-10-09 17:05] LABS: CALCIUM 6.2 mg/dL (8.5-10.1)
--- NOTE | 2019-10-09 17:06 | NUR ---
SEE RECORD OF FOR DETAILS.
--- NOTE | 2019-10-09 18:42 | NUR ---
GREGORIO PEÑA JR CALLED TO CHECK ON THE PATIENTS STATUS. NOTIFIED THE PATIENT THAT HIS FATHER HAD PASSED AND THAT WE HAD NOTIFIED EVERY FAMILY MEMBER ON THE CHART. FAMILY MEMBER WAS ANGRY THAT WE HAD NOT CALLED HIM BUT REASSURED THAT WE NOTIFIED ALL ACTIVE FAMILY MEMBER ON THAT CHART AND THAT I GREATLY APOLOGIZED THAT HE WAS NOT NOTIFIED BUT THAT I WOULD HAVE CALLED IF HIS NUMBER WOULD HAVE BEEN AVAILABLE. HE STATED THAT HE WOULD BE IN TOUCH WITH US. PT TRANSFERED TO [facility].
--- NOTE | 2019-10-10 01:29 | MORECARE ---
CASE MANAGEMENT DISCHARGE SUMMARY PATIENT: GREGORIO PEÑA UNIT: [id number] ADM DATE: 09/24/19 AGE: 84 : 37 SEX: M ROOM/BED: D.6599 AUTHOR: GAYLE,DOC PHYSICIAN: REFERRING PHYSICIAN: JOSH MORENO MD DATE OF SERVICE: 10/10/19 Discharge Plan Patient Name: GREGORIO PEÑA Facility: [facility]:[place] : 1935 Planned Disposition: Detention Facility Anticipated Discharge Date: 10/11/19 Discharge Date: 10/09/2019 Expected LOS: 17 Initial Reviewer: [email or web address] Initial Review Date: 09/30/2019 Generated: 10/10/19 2:28 am Comments DCP- Discharge Planning Updated by [email or web address]: Roxana Snider on 10/09/19 12:[address] CM contacted Josh, with [facility] and the patient's bed is still available when discharged. DCP- Discharge Planning Updated by [email or web address]: Roxana Snider on 10/08/19 9:[address] CM contacted patient's daughter, Nubia and she is in agreement to a nursing facility. She would like the patient to be transferred to [facility]. CM encouraged daughter to be in contact with [facility]. CM will fax required information to [facility]. CM met with patient to discuss initial discharge planning. Patient is in agreement to proceed with the assessment. Patient reports that he lives at [facility], [facility]. Patient is alert/oriented. Stairs/steps: 0. PCP: Eva. Pharmacy: [facility]. Patient gives permission to speak with family members. Emergency contact: Nubia Tolbert (dtr) [phone]. Patient is in agreement that he will need further rehab assist. Patient has been hospitalized within the past 30 days.. Patient denies the use of community resources [employer] [employer]. Transportation at time of discharge: Nursing facility. DCP- Discharge Planning Updated by [id number]: Molly Sequeira on 09/30/19 3:[address] Patient Name: GREGORIO PEÑA Admission Status: ER Accout number: [id number] Admission Date: 09-24-2019 : 1935 Admission Diagnosis:ANEMIA, UNSPECIFIED Attending: GRICEL Current LOS: 6 Anticipated DC Date: Planned Disposition: Primary Insurance: MEDICARE A & B Discharge Planning Comments: PER MEDICAL RECORDS PATIENT IS A RESIDENT OF [facility]. IS CURRENTLY WAITING FOR ARTERIOGRAM . CAN NOT HAVE PROCEDURE UNTIL INR IS LOWER. CM TO FOLLOW AND ASSIST NEEDED. Print Shop Chief Clerk: Molly Sequeira DCPIA - Discharge Planning Initial Assessment Updated by [email or web address]: Roxana Snider on 10/09/19 1:11 pm * Is the patient Alert and Oriented? Yes * How many steps to enter\exit or inside your home? * PCP Dr. Velasquez * Pharmacy [facility] * Preadmission Environment Detention Facility * Facility Name [facility] * ADLs Partial Dependent * Partial ADLs (Assistance needed) Bathing Medication Management * Equipment Hospital Bed Oxygen Walker * Other Equipment Nursing facility supplies other DME * List name and contact numbers for known caregivers / representatives who currently or will assist patient after discharge: Nubia Tolbert (dtr) [phone] * Verbal permission to speak to the caregivers and representatives has been obtained from the patient. Yes * Community resources currently utilized None * Please name any agencies selected above. NA * Additional services required to return to the preadmission environment? No * Can the patient safely return to the preadmission environment? Yes * Has this patient been hospitalized within the prior 30 days at any hospital? No Last DP export: 10/09/19 12:12 p Patient Name: GREGORIO PEÑA Page [id number] at 0129 All edits/amendments must be made on the electronic document DICTATION DATE: 10/10/19 012 PRODUCT REPRESENTATIVE: MARIAN 10/10/19 0129 RPT#: [id number] DC DATE:10/09/19 STATUS: DIS IN [facility] [address] [place] [address] END OF REPORT
== END 2019-10-09 18:49 | DRG 252 ==
LOC: D.ER 12:48 → D.MS 18:38 → D.M2 18:38 → D.MS 09-27 16:23 → D.M2 10-02 17:51 → D.ICU 10-04 10:17 → D.M2 10-05 17:11
PROVIDERS: Family Medicine; Family Medicine Adult Medicine; Internal Medicine Pulmonary Disease; ADMIT Family Medicine; ATTEND Family Medicine
PROC: 047K3ZZ Dilation of Right Femoral Artery, Percutaneous Approach (ICD-10-PCS; principal; 2019-10-08)
PROC: 047M3ZZ Dilation of Right Popliteal Artery, Percutaneous Approach (ICD-10-PCS; 2019-10-08)
PROC: 047C3ZZ Dilation of Right Common Iliac Artery, Percutaneous Approach (ICD-10-PCS; 2019-10-08)
PROC: 5A12012 Performance of Cardiac Output, Single, Manual (ICD-10-PCS; 2019-10-09)
PROC: 0BH17EZ Insertion of Endotracheal Airway into Trachea, Via Natural or Artificial Opening (ICD-10-PCS; 2019-10-09)
DX: E11.52 Type 2 diabetes mellitus with diabetic peripheral angiopathy with gangrene (principal); J18.9 Pneumonia, unspecified organism; J96.21 Acute and chronic respiratory failure with hypoxia; J81.0 Acute pulmonary edema; S32.512A Fracture of superior rim of left pubis, initial encounter for closed fracture; G72.81 Critical illness myopathy; I96 Gangrene, not elsewhere classified; I42.9 Cardiomyopathy, unspecified; I13.0 Hypertensive heart and chronic kidney disease with heart failure and stage 1 through stage 4 chronic kidney disease, or unspecified chronic kidney disease; S32.592A Other specified fracture of left pubis, initial encounter for closed fracture; J98.11 Atelectasis; I50.20 Unspecified systolic (congestive) heart failure; D64.9 Anemia, unspecified; X58.XXXA Exposure to other specified factors, initial encounter; E11.65 Type 2 diabetes mellitus with hyperglycemia; I48.91 Unspecified atrial fibrillation; Z66 Do not resuscitate; E78.5 Hyperlipidemia, unspecified; I25.10 Atherosclerotic heart disease of native coronary artery without angina pectoris; N18.9 Chronic kidney disease, unspecified; E11.22 Type 2 diabetes mellitus with diabetic chronic kidney disease; Z86.718 Personal history of other venous thrombosis and embolism; Z86.73 Personal history of transient ischemic attack (TIA), and cerebral infarction without residual deficits; Z79.01 Long term (current) use of anticoagulants